=== PATIENT | female | born 1970 | race Caucasian/White ===

== ENCOUNTER 2018-07-27 19:16 | Emergency (ER) | payer BC ==
[~2018-07-27] VITALS: Ht 177.8 cm; Wt 56.0 kg
[~2018-07-27 19:16] MED LIST: AMYL1CAP54 PO; EST1T PO; OXYC-658 PO; PANT40TA4 PO; SUMA100T PO; TIZA2TAB4 PO; ZOLP5TAB2 PO
[2018-07-27 20:20] LABS: BASOPHILS # (AUTO) 0.1 X10'3 (0-0.2); EOSINOPHILS # (AUTO) 0.1 X10'3 (0-0.9); EOSINOPHILS % (AUTO) 2.1 % (0-6); HEMATOCRIT 36.1 % (35.0-45.0); HEMOGLOBIN 12.2 g/dl (12.0-16.0); LYMPHOCYTES # (AUTO) 2.3 X10'3 (1.1-4.8); LYMPHOCYTES % (AUTO) 35.1 % (21-51); MEAN CORPUSCULAR HEMOGLOBIN 29.7 PG (27.0-31.0); MEAN CORPUSCULAR HGB CONC 33.7 % (33.0-36.5); MEAN PLATELET VOLUME 9.7 FL (7.4-10.4); MONOCYTES # (AUTO) 0.3 X10'3 (0-0.9); MONOCYTES % (AUTO) 5.2 % (2-12); NEUTROPHILS # (AUTO) 3.7 X10'3 (1.8-7.7); NEUTROPHILS % (AUTO) 56.6 % (42-75); PLATELET COUNT 250 X10'3 (140-440); RED CELL DISTRIBUTION WIDTH 14.4 % (11.5-14.5); WHITE BLOOD COUNT 6.4 X10'3 (4.5-11.0)
[2018-07-27 20:34] LABS: ALANINE AMINOTRANSFERASE 23 U/L (12-78); ALBUMIN 3.6 G/DL (3.4-5.0); ALBUMIN/GLOBULIN RATIO 1.1 (1.1-1.5); ALKALINE PHOSPHATASE 73 IU/L (46-116); ANION GAP 11 (8-16); ASPARTATE AMINO TRANSFERASE 15 U/L (10-37); BILIRUBIN,TOTAL 0.3 MG/DL (0.1-1.0); BLOOD UREA NITROGEN 19 MG/DL (7-18); BUN/CREATININE RATIO 30.6 (6.6-38.0); CALCIUM 8.9 MG/DL (8.5-10.1); CHLORIDE 106 MMOL/L (99-107); CREATININE 0.62 MG/DL (0.40-0.90); GLUCOSE 91 MG/DL (70-104); LIPASE 147 U/L (73-393); SODIUM 140 MMOL/L (135-145); TOTAL CARBON DIOXIDE 23.5 MMOL/L (24-32); TOTAL PROTEIN 6.8 G/DL (6.4-8.2); eGFR > 90 ML/MIN
[2018-07-27] MEDS ORDERED: heparin sodium, porcine/PF 100unit/ml 5ML syringe IV STA (20:39)
[2018-07-27] MEDS ORDERED: normal saline 1000ml 1,000 ML IV ONE (20:46)
[2018-07-27] MEDS ORDERED: ondansetron/PF 4mg/2ml inj IV ONE (20:50)
[2018-07-27] MEDS ORDERED: normal saline 1000ML IV soln IVB ONE (20:50)
[2018-07-27 21:21] LABS: CLARITY,URINE CLEAR (Clear); COLOR,URINE YELLOW (Yellow); GLUCOSE, URINE NEGATIVE (Neg); KETONES,URINE NEGATIVE (Neg); LEUKOCYTE ESTERASE ,URINE NEGATIVE (Neg); NITRITES, URINE NEGATIVE (Neg); OCCULT BLOOD,URINE NEGATIVE (Neg); PROTEIN,URINE NEGATIVE (Neg); UA COLLECTION TYPE NON-SPECIFIED; UROBILINOGEN,URINE 0.2 E.U/dL (0.2-1.0)
[2018-07-27 21:23] LABS: URINE HCG NEGATIVE (NEG)
[2018-07-27] MEDS: HYDROmorphone 1 mg/ml syringe IV PRN ×3 (21:30→23:28)
[2018-07-28] MEDS ORDERED: normal saline 1000ML IV soln IVB ONE (00:30)
[2018-07-28] MEDS ORDERED: potassium Cl 20mEq in D5-NS 1,000 ML IV SCH (00:35)
[2018-07-28] MEDS: ondansetron/PF 4mg/2ml inj IV SCH ×5 (00:51→09:00)
[2018-07-28] MEDS: HYDROmorphone 1 mg/ml syringe IV PRN (00:52)
[2018-07-28] MEDS: HYDROmorphone 1 mg/ml syringe IV SCH ×5 (02:29→09:00)
[2018-07-28 06:14] VITALS: BP 115/76
[2018-07-28] MEDS ORDERED: tPA-cathflo 2 MG/2 ml IV flush IVF ONE (08:20)
[2018-07-28] MEDS ORDERED: OXYC10TA57 PO (09:47)
== END 2018-07-28 10:00 | disposition home or self-care (01) ==
LOC: ER 19:17
DX: I82.611 Acute embolism and thrombosis of superficial veins of right upper extremity (principal); R10.10 Upper abdominal pain, unspecified; R11.2 Nausea with vomiting, unspecified; K86.1 Other chronic pancreatitis; G89.29 Other chronic pain; Z90.49 Acquired absence of other specified parts of digestive tract; Z90.710 Acquired absence of both cervix and uterus; Z98.890 Other specified postprocedural states; Z88.6 Allergy status to analgesic agent; Z88.8 Allergy status to other drugs, medicaments and biological substances; Z91.013 Allergy to seafood
CPT/HCPCS: 36415; 36569; 71045; 74176; 80053; 81003; 81025; 83690; 85025; 93971; 96361; 96374; 96375; 96376; 99285; J1170; J2405; J3480; 96365; 99284; J2997

== ENCOUNTER 2019-03-29 19:41 | Emergency (ER) | payer MEDICAID ==
[~2019-03-29] VITALS: Ht 177.8 cm; Wt 56.8 kg
[~2019-03-29 19:41] MED LIST changes: +HYDR2TAB28 PO; +METR-159 PO; -OXYC-658 PO; +OXYC10TA57 PO; -PANT40TA4 PO; -SUMA100T PO; -TIZA2TAB4 PO
[2019-03-29 20:19] LABS: BASOPHILS % (AUTO) 0.5 % (0-1); EOSINOPHILS # (AUTO) 0.2 X10'3 (0-0.9); EOSINOPHILS % (AUTO) 2.5 % (0-6); HEMATOCRIT 37.7 % (35.0-45.0); LYMPHOCYTES # (AUTO) 2.8 X10'3 (1.1-4.8); LYMPHOCYTES % (AUTO) 45.8 % (21-51); MEAN CORPUSCULAR HEMOGLOBIN 24.5 PG (27.0-31.0); MEAN CORPUSCULAR VOLUME 76.5 FL (78-98); MEAN PLATELET VOLUME 8.9 FL (7.4-10.4); MONOCYTES # (AUTO) 0.3 X10'3 (0-0.9); MONOCYTES % (AUTO) 4.6 % (2-12); NEUTROPHILS # (AUTO) 2.8 X10'3 (1.8-7.7); NEUTROPHILS % (AUTO) 46.6 % (42-75); PLATELET COUNT 240 X10'3 (140-440); RED BLOOD COUNT 4.92 X10'6 (4.20-5.60); RED CELL DISTRIBUTION WIDTH 16.2 % (11.5-14.5); WHITE BLOOD COUNT 6.1 X10'3 (4.5-11.0)
[2019-03-29] MEDS ORDERED: morphine 4 MG/ML inj SYRINge IV ONE ×2 (20:30→22:30)
[2019-03-29] MEDS ORDERED: ondansetron/PF 4mg/2ml inj IV ONE (20:30)
[2019-03-29 20:36] LABS: ALANINE AMINOTRANSFERASE 38 U/L (12-78); ALBUMIN/GLOBULIN RATIO 1.3 (1.1-1.5); ALKALINE PHOSPHATASE 95 IU/L (46-116); ANION GAP 12 (8-16); ASPARTATE AMINO TRANSFERASE 36 U/L (10-37); BILIRUBIN,TOTAL 0.3 MG/DL (0.1-1.0); BLOOD UREA NITROGEN 19 MG/DL (7-18); CALCIUM 9.2 MG/DL (8.5-10.1); CHLORIDE 105 MMOL/L (99-107); CREATININE 0.73 MG/DL (0.40-0.90); GLUCOSE 107 MG/DL (70-104); POTASSIUM 3.6 MMOL/L (3.5-5.1); SODIUM 143 MMOL/L (135-145); TOTAL PROTEIN 7.2 G/DL (6.4-8.2); eGFR 85 ML/MIN
--- NOTE | 2019-03-29 21:36 | NUR ---
PT UNABLE TO VOID FOR UA.
[2019-03-29] MEDS ORDERED: BISA-155 PO (22:33)
[2019-03-29] MEDS ORDERED: DICY10CA88 PO (22:33)
[2019-03-29] MEDS ORDERED: GOLYS PO (22:33)
[2019-03-29 22:34] VITALS: BP 106/49
== END 2019-03-29 22:48 | disposition home or self-care (01) ==
LOC: ER 19:41
DX: K59.00 Constipation, unspecified (principal); R10.12 Left upper quadrant pain; R10.11 Right upper quadrant pain; R06.02 Shortness of breath; G89.29 Other chronic pain; F41.9 Anxiety disorder, unspecified; F32.9 Major depressive disorder, single episode, unspecified; F12.90 Cannabis use, unspecified, uncomplicated; Z90.49 Acquired absence of other specified parts of digestive tract; Z90.710 Acquired absence of both cervix and uterus; Z98.890 Other specified postprocedural states; Z88.8 Allergy status to other drugs, medicaments and biological substances; Z91.013 Allergy to seafood; Z79.899 Other long term (current) drug therapy
CPT/HCPCS: 36415; 74176; 80053; 85025; 85610; 96374; 96375; 96376; 99284; J2270; J2405

== ENCOUNTER 2019-04-06 20:24 | Inpatient (IN) | payer MEDICAID ==
[~2019-04-06] VITALS: Ht 177.8 cm; Wt 56.9 kg
[~2019-04-06 20:24] MED LIST changes: +BISA-155 PO; +DICY10CA88 PO; +GOLYS PO
--- NOTE | 2019-04-06 20:30 | NUR ---
PT REQUESTED WE USE PICC LINE FOR MEDICATION . dR GRIGGS OK'D PICC LINE USE.
[2019-04-06] MEDS ORDERED: morphine 4 MG/ML inj SYRINge IV ONE ×2 (20:40→23:15)
[2019-04-06] MEDS ORDERED: ondansetron/PF 4mg/2ml inj IV ONE (20:40)
--- NOTE | 2019-04-06 21:00 | NUR ---
PT TO CT OF ABDOMEN
[2019-04-06 21:18] LABS: BASOPHILS # (AUTO) 0.1 X10'3 (0-0.2); BASOPHILS % (AUTO) 0.9 % (0-1); EOSINOPHILS # (AUTO) 0.1 X10'3 (0-0.9); EOSINOPHILS % (AUTO) 2.2 % (0-6); HEMATOCRIT 37.9 % (35.0-45.0); HEMOGLOBIN 12.5 g/dl (12.0-16.0); LYMPHOCYTES # (AUTO) 2.5 X10'3 (1.1-4.8); LYMPHOCYTES % (AUTO) 43.9 % (21-51); MEAN CORPUSCULAR HGB CONC 32.9 g/dL (33.0-36.5); MEAN CORPUSCULAR VOLUME 75.9 FL (78-98); MEAN PLATELET VOLUME 8.4 FL (7.4-10.4); MONOCYTES # (AUTO) 0.3 X10'3 (0-0.9); MONOCYTES % (AUTO) 5.3 % (2-12); NEUTROPHILS # (AUTO) 2.7 X10'3 (1.8-7.7); NEUTROPHILS % (AUTO) 47.7 % (42-75); PLATELET COUNT 247 X10'3 (140-440); RED BLOOD COUNT 4.99 X10'6 (4.20-5.60); WHITE BLOOD COUNT 5.6 X10'3 (4.5-11.0)
[2019-04-06] MEDS ORDERED: fentaNYL/PF 50MCG/1 ML 2ML syringe IV ONE ×2 (21:35→22:25)
--- NOTE | 2019-04-06 21:35 | NUR ---
MEDICATED WITH ZOFRAN AND 8 MG OF MORPHINE FOR PAIN 8/10 TO MID EPIGASTRIC TO UPPPER LEFT QUAD PAIN. NOTIFIED DR GRIGGS OF RELEIF NOT MET
[2019-04-06 21:36] LABS: ALANINE AMINOTRANSFERASE 38 U/L (12-78); ALBUMIN/GLOBULIN RATIO 1.1 (1.1-1.5); ALKALINE PHOSPHATASE 100 IU/L (46-116); ANION GAP 11 (8-16); ASPARTATE AMINO TRANSFERASE 19 U/L (10-37); BILIRUBIN,TOTAL 0.3 MG/DL (0.1-1.0); BLOOD UREA NITROGEN 12 MG/DL (7-18); BUN/CREATININE RATIO 18.5 (6.6-38.0); CALCIUM 9.3 MG/DL (8.5-10.1); CHLORIDE 105 MMOL/L (99-107); CREATININE 0.65 MG/DL (0.40-0.90); GLUCOSE 93 MG/DL (70-104); LIPASE 110 U/L (73-393); POTASSIUM 3.8 MMOL/L (3.5-5.1); SODIUM 140 MMOL/L (135-145); TOTAL CARBON DIOXIDE 24.5 MMOL/L (24-32); TOTAL PROTEIN 7.5 G/DL (6.4-8.2); eGFR > 90 ML/MIN
[2019-04-06] MEDS ORDERED: ketorolac trometh. 30mg/ml inj. IV ONE (21:50)
[2019-04-06] MEDS ORDERED: ketorolac tromethamine 15mg/ml inj. IV ONE (21:50)
[2019-04-06 22:09] LABS: UA COLLECTION TYPE CLN CATCH MIDSTREAM
[2019-04-06 22:10] LABS: CLARITY,URINE CLEAR (Clear); COLOR,URINE YELLOW (Yellow); GLUCOSE, URINE NEGATIVE (Neg); KETONES,URINE NEGATIVE (Neg); LEUKOCYTE ESTERASE ,URINE NEGATIVE (Neg); NITRITES, URINE NEGATIVE (Neg); OCCULT BLOOD,URINE NEGATIVE (Neg); PROTEIN,URINE NEGATIVE (Neg); UROBILINOGEN,URINE 0.2 E.U/dL (0.2-1.0)
[2019-04-06 22:11] LABS: URINE HCG NEGATIVE (NEG)
--- NOTE | 2019-04-06 22:56 | NUR ---
PT SITTING IN BED WITH KNEES TO CHEST USING PHONE . MEDICATED WITH FENTANYL ORDER. PT VERBALIZE THAT SHE FEELS THAT HER PAIN IS NOW GETTING IN CONTROL BUT STILL CONCERNED ABOUT WHAT IS CAUSING HER DISCOMFORT. REVIEWED ALL LABS WITH PATIENT AND DISCUSED POC .
[2019-04-07] MEDS ORDERED: HYDROmorphone 1 mg/ml syringe IV ONE (00:40)
[2019-04-07] MEDS ORDERED: magnesium hydroxide 30ml (MOM) UD suspension PO PRN (00:55)
[2019-04-07] MEDS ORDERED: magnesium 4gm in 100ml NS 100 ML IV PRN (00:55)
[2019-04-07] MEDS ORDERED: magnesium 2GM in 50ml NS 50 ML IV PRN (00:55)
[2019-04-07] MEDS ORDERED: potassium Cl 20 mEq SR tablet PO PRN ×2 (00:55)
[2019-04-07] MEDS ORDERED: morphine 2 MG/ML inj. syringe IV PRN ×2 (00:55)
[2019-04-07] MEDS ORDERED: potassium CL 10mEq/100ml bag 100 ML IV PRN ×2 (00:55)
[2019-04-07] MEDS ORDERED: magnesium Cl slow-release 64mg tablet PO PRN (00:55)
[2019-04-07] MEDS ORDERED: mag hydrox/Alum hydrox/simeth 30ml oral suspension PO PRN (00:55)
--- NOTE | 2019-04-07 01:14 | NUR ---
chest x ray to confirm picc placement
[2019-04-07] MEDS: normal saline 1000ml 1,000 ML IV SCH ×4 (01:18→21:35)
[2019-04-07] MEDS ORDERED: TIZA4TAB11 PO (01:25)
[2019-04-07] MEDS ORDERED: POLY119P2 PO (01:27)
--- NOTE | 2019-04-07 02:02 | NUR ---
Received report from Meghann CARR, will assess patient when she arrives.
[2019-04-07 02:10] VITALS: BP 106/62
--- NOTE | 2019-04-07 02:10 | NUR ---
Ok to use PICC line per Dr. Marroquin.
--- NOTE | 2019-04-07 02:15 | NUR ---
Discussed with Dr. Do the amount of pain medications provided down in ED, received order for Dilaudid CADD standard settings. Dr. Do also recommended NG but patient refused statin she would like to wait some time before doing that. Will continue to monitor.
[2019-04-07] MEDS ORDERED: naloxone 0.4 mg/ml inj IV PRN (02:30)
[2019-04-07] MEDS: HYDROmorphone/NS 1 mg/ml CADD 50 ML IV SCH ×15 (02:47→23:43)
[2019-04-07] MEDS ORDERED: SUMA100T16 PO (06:40)
[2019-04-07] MEDS ORDERED: ESTR1TAB28 PO (06:40)
[2019-04-07 07:00] VITALS: BP 110/46
--- NOTE | 2019-04-07 07:01 | NUR ---
Patient in room [facility] 360. I have received report from Elaine CARR and had the opportunity to ask questions and assume patient care.
--- NOTE | 2019-04-07 07:05 | NUR ---
Janey Sheriff reviewed patients Xray and stated PICC line in place and ok to use.
[2019-04-07] MEDS: K and/or MAG REPLACEMENT MC SCH (08:00)
[2019-04-07] MEDS: docusate sod 100mg capsule PO SCH ×2 (08:00→19:09)
[2019-04-07] MEDS ORDERED: zolpidem 5mg tablet PO PRN (08:30)
[2019-04-07] MEDS ORDERED: SUMAtriptan 25 MG tablet PO PRN (08:30)
[2019-04-07] MEDS: enoxaparin 40mg/0.4ml syringe SQ SCH (08:58)
[2019-04-07 11:00] VITALS: BP 100/45
[2019-04-07] MEDS ORDERED: tizanidine 4mg tablet PO SCH (13:00)
[2019-04-07] MEDS: LIPASE/PROTEASE/AMYLASE 4,200 unit CAPSULE.DR PO SCH ×2 (13:00→19:28)
[2019-04-07] MEDS: ondansetron/PF 4mg/2ml inj IV PRN ×2 (15:03→21:34)
--- NOTE | 2019-04-07 15:56 | NUR ---
Read Dr Melton the KUB impression. Per Dr Melton contact Dr Downey and tell him patient needs a GI consult.
--- NOTE | 2019-04-07 18:30 | NUR ---
Patient in room [facility] 360. I have received report from Rocio CARR and had the opportunity to ask questions and assume patient care. Patient resting in bed, DIRECTOR OF QUALITY IMPROVEMENT running will continue to monitor..
--- NOTE | 2019-04-07 18:41 | NUR ---
Problems reprioritized. Patient report given, questions answered & plan of care reviewed with Elaine CARR.
[2019-04-07 19:00] VITALS: BP 112/46
[2019-04-07] MEDS: pantoprazole 40 MG vial IV SCH (19:18)
[2019-04-07] MEDS: diatr meglu/diatrizoate 30ml oral sol.-(3 dose) bottle PO SCH ×2 (19:22→23:06)
[2019-04-07] MEDS: estradiol 1mg tablet PO SCH (21:34)
--- NOTE | 2019-04-07 22:47 | NUR ---
Per patient her physician that manages her pancreas states that she can dose her capsules based on the amount she eats. Received order from Dr. Do that states that the patient may dose as she requested above. Will continue to monitor.
[2019-04-08] VITALS (14 sets, daily range): BP systolic 96–128; BP diastolic 38–87
[2019-04-08] MEDS: HYDROmorphone/NS 1 mg/ml CADD 50 ML IV SCH ×12 (01:00→23:00)
[2019-04-08 04:54] LABS: BASOPHILS % (AUTO) 0.3 % (0-1); EOSINOPHILS % (AUTO) 0.1 % (0-6); HEMATOCRIT 27.1 % (35.0-45.0); HEMOGLOBIN 8.8 g/dl (12.0-16.0); LYMPHOCYTES # (AUTO) 0.4 X10'3 (1.1-4.8); LYMPHOCYTES % (AUTO) 5.1 % (21-51); MEAN CORPUSCULAR HEMOGLOBIN 25.1 PG (27.0-31.0); MEAN CORPUSCULAR HGB CONC 32.6 g/dL (33.0-36.5); MEAN PLATELET VOLUME 8.9 FL (7.4-10.4); MONOCYTES # (AUTO) 0.3 X10'3 (0-0.9); MONOCYTES % (AUTO) 4.2 % (2-12); NEUTROPHILS # (AUTO) 6.7 X10'3 (1.8-7.7); NEUTROPHILS % (AUTO) 90.3 % (42-75); PLATELET COUNT 147 X10'3 (140-440); RED BLOOD COUNT 3.51 X10'6 (4.20-5.60); RED CELL DISTRIBUTION WIDTH 16.7 % (11.5-14.5); WHITE BLOOD COUNT 7.4 X10'3 (4.5-11.0)
[2019-04-08 05:07] LABS: ANION GAP 13 (8-16); BLOOD UREA NITROGEN 9 MG/DL (7-18); BUN/CREATININE RATIO 17.3 (6.6-38.0); CALCIUM 7.8 MG/DL (8.5-10.1); CHLORIDE 112 MMOL/L (99-107); CREATININE 0.52 MG/DL (0.40-0.90); GLUCOSE 79 MG/DL (70-104); MAGNESIUM 1.5 MG/DL (1.5-2.4); POTASSIUM 3.5 MMOL/L (3.5-5.1); SODIUM 144 MMOL/L (135-145); TOTAL CARBON DIOXIDE 19.1 MMOL/L (24-32); eGFR > 90 ML/MIN
--- NOTE | 2019-04-08 06:32 | NUR ---
Problems reprioritized. Patient report given, questions answered & plan of care reviewed with Rocio CARR.
--- NOTE | 2019-04-08 06:43 | NUR ---
Patient in room [facility] 340. I have received report from Elaine CARR and had the opportunity to ask questions and assume patient care.
[2019-04-08] MEDS: enoxaparin 40mg/0.4ml syringe SQ SCH (08:00)
[2019-04-08] MEDS ORDERED: ESOMEPRAZOLE 40 MG VIAL IV SCH (08:00)
[2019-04-08] MEDS: LIPASE/PROTEASE/AMYLASE 4,200 unit CAPSULE.DR PO SCH ×3 (08:00→21:00)
[2019-04-08] MEDS: K and/or MAG REPLACEMENT MC SCH (08:00)
[2019-04-08] MEDS: normal saline 1000ml 1,000 ML IV SCH ×2 (08:14→18:00)
[2019-04-08] MEDS: pantoprazole 40 MG vial IV SCH ×2 (08:17→19:15)
[2019-04-08] MEDS: docusate sod 100mg capsule PO SCH (08:22)
--- NOTE | 2019-04-08 09:24 | NUR ---
Pt with low BMI of 18.0 using current documented wt of 56.8 kg which is patient stated. Patient with stable wt hx of 56.15 kg taken 12/28/18 with chair scale and 56.8 kg taken 07/25/19 using standing scale. Pt denied wt loss or decrease in appetite during malnutrition risk screening with RN. No decrease in muscle strength or edema. No malnutrition at this time. Will continue to follow. Addendum: 04/08/19 at [address] Amended: Links added.
[2019-04-08] MEDS ORDERED: LIDOcaine Viscous 15ml cup ONE (12:35)
[2019-04-08] MEDS ORDERED: MIDAZolam 5mg/5ml vial ONE (12:35)
[2019-04-08] MEDS ORDERED: fentaNYL/PF 50MCG/1 ML 2ML syringe ONE (12:35)
--- NOTE | 2019-04-08 15:08 | NUR ---
Dr Downey aware of report from GI lab, Received orders to continue care as we have been and to notify Case Management about patient needing to be referred back to [facility]. Kathy notified with Case Management. Dr Downey aware patient received 4 of versed and 100 of fentynl and was falling asleep during our conversation in the room. Per Dr Downey hold off on increasing patients Dilaudid Cadd to 0.3 Continue until patient is more awake. Leave patients Dilauidid cadd at same settingings until tonight when more awake. Settings as of now 0.3 mg demand Q10 min and 0.2 continuous.
--- NOTE | 2019-04-08 15:43 | NUR ---
TPN consult: Per RN pt already with a PICC and given the okay to use. Recommendations below to meet 100% of patient's estimated nutrient needs have been d/w pharmacy. Pt admit with c/o abdominal pain s/p KUB with no evidence of SBO per MD notes. Pt to get EGD to r/o gastritis per MD notes. 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 Pt currently on clear liquid diet however to be NPO at midnight for EGD. Pt with active Pancreaze in med list. LBM 04/06. Will continue to follow. Recommendations: 1) Advance PO diet to regular as medically indicated 2) Continuous 2:1 Clinimix E at 80 mL/hr to provide: 1920 mL total volume/day, 96 g protein, and 288 g dextrose. Dextrose load 3.57 mg/kg/min 3) Separate 216 mL 20% intralipids to run at 18 mL/hr for 12 hours to provide 43.2 g lipids 4) In total, TPN to provide 1411 non-protein kcal and 1795 total kcal 5) Serum TG q / 6) Daily weights Addendum: 04/08/19 at [address] Amended: Links added.
[2019-04-08] MEDS ORDERED: TRACE ELEMENT IV SCH (16:20)
[2019-04-08] MEDS ORDERED: CAL IV SCH (16:20)
[2019-04-08] MEDS ORDERED: [UNRECOGNIZED DRUG - OTHER] IV SCH (16:20)
[2019-04-08] MEDS ORDERED: Trace element-5 inj. 1 ML in AA 5%/cal/electrolyte-TPN/D15W 2,000 ML IV SCH (17:00)
--- NOTE | 2019-04-08 18:30 | NUR ---
Patient in room [facility] 340. I have received report from Rocio CARR and had the opportunity to ask questions and assume patient care. Patient resting in bed, denies needs at this time. Will continue to monitor.
[2019-04-08 18:44] LABS: PREALBUMIN 14.6 MG/DL (19-36)
--- NOTE | 2019-04-08 19:18 | NUR ---
Problems reprioritized. Patient report given, questions answered & plan of care reviewed with Elaine CARR.
[2019-04-08] MEDS: sucralfate 1gm/10ml UD suspension PO SCH (22:25)
[2019-04-08] MEDS: estradiol 1mg tablet PO SCH (22:26)
[2019-04-09] VITALS: BP 124/58
[2019-04-09] MEDS: HYDROmorphone/NS 1 mg/ml CADD 50 ML IV SCH ×12 (01:00→23:00)
[2019-04-09] MEDS: normal saline 1000ml 1,000 ML IV SCH ×3 (03:14→23:55)
[2019-04-09] MEDS: ondansetron/PF 4mg/2ml inj IV PRN ×3 (05:36→21:34)
[2019-04-09 05:52] LABS: BASOPHILS % (AUTO) 0.5 % (0-1); EOSINOPHILS % (AUTO) 1.4 % (0-6); HEMATOCRIT 27.4 % (35.0-45.0); HEMOGLOBIN 9.1 g/dl (12.0-16.0); LYMPHOCYTES # (AUTO) 0.8 X10'3 (1.1-4.8); LYMPHOCYTES % (AUTO) 23.3 % (21-51); MEAN CORPUSCULAR HEMOGLOBIN 25.1 PG (27.0-31.0); MEAN CORPUSCULAR HGB CONC 33.2 g/dL (33.0-36.5); MEAN CORPUSCULAR VOLUME 75.7 FL (78-98); MEAN PLATELET VOLUME 8.6 FL (7.4-10.4); MONOCYTES # (AUTO) 0.3 X10'3 (0-0.9); MONOCYTES % (AUTO) 8.1 % (2-12); NEUTROPHILS # (AUTO) 2.2 X10'3 (1.8-7.7); NEUTROPHILS % (AUTO) 66.7 % (42-75); PLATELET COUNT 150 X10'3 (140-440); RED BLOOD COUNT 3.63 X10'6 (4.20-5.60); RED CELL DISTRIBUTION WIDTH 16.7 % (11.5-14.5); WHITE BLOOD COUNT 3.3 X10'3 (4.5-11.0)
[2019-04-09 05:55] LABS: ALANINE AMINOTRANSFERASE 58 U/L (12-78); ALBUMIN/GLOBULIN RATIO 1.2 (1.1-1.5); ALKALINE PHOSPHATASE 69 IU/L (46-116); ANION GAP 9 (8-16); ASPARTATE AMINO TRANSFERASE 37 U/L (10-37); BILIRUBIN,TOTAL 0.4 MG/DL (0.1-1.0); BLOOD UREA NITROGEN 6 MG/DL (7-18); BUN/CREATININE RATIO 11.5 (6.6-38.0); CALCIUM 8.1 MG/DL (8.5-10.1); CHLORIDE 107 MMOL/L (99-107); CREATININE 0.52 MG/DL (0.40-0.90); GLUCOSE 100 MG/DL (70-104); MAGNESIUM 1.5 MG/DL (1.5-2.4); POTASSIUM 3.5 MMOL/L (3.5-5.1); SODIUM 139 MMOL/L (135-145); TOTAL CARBON DIOXIDE 23.1 MMOL/L (24-32); TOTAL PROTEIN 5.5 G/DL (6.4-8.2); eGFR > 90 ML/MIN
[2019-04-09] MEDS: CADD PCA waste documentation MC PRN (05:55)
[2019-04-09] MEDS: K and/or MAG REPLACEMENT MC SCH (06:55)
--- NOTE | 2019-04-09 06:56 | NUR ---
Problems reprioritized. Patient report given, questions answered & plan of care reviewed with Latonia CARR.
[2019-04-09 07:16] VITALS: BP 94/50
[2019-04-09] MEDS: sucralfate 1gm/10ml UD suspension PO SCH ×4 (07:45→21:00)
[2019-04-09] MEDS: pantoprazole 40 MG vial IV SCH ×2 (07:58→21:40)
[2019-04-09] MEDS: enoxaparin 40mg/0.4ml syringe SQ SCH (08:04)
[2019-04-09] MEDS: LIPASE/PROTEASE/AMYLASE 4,200 unit CAPSULE.DR PO SCH ×3 (08:42→21:00)
[2019-04-09] MEDS: MVI, adult No.4 with vit. K 10 ML in normal saline 500ml IV soln 500 ML IV SCH ×2 (10:04)
[2019-04-09 11:00] VITALS: BP 107/57
[2019-04-09] MEDS: Trace element-5 inj. 1 ML in AA 5%/cal/electrolyte-TPN/D15W 2,000 ML IV SCH (12:45)
--- NOTE | 2019-04-09 12:59 | NUR ---
pt took 3 capsules of 1300 pancreaze dose
[2019-04-09] MEDS: proCHLORperazine 10 MG/2 ml inj IV PRN (15:42)
--- NOTE | 2019-04-09 18:30 | NUR ---
Patient in room [facility] 340. I have received report from Latonia CARR and had the opportunity to ask questions and assume patient care.
--- NOTE | 2019-04-09 18:47 | NUR ---
Problems reprioritized. Patient report given, questions answered & plan of care reviewed with Amanda CARR.
--- NOTE | 2019-04-09 18:49 | NUR ---
Problems reprioritized. Patient report given, questions answered & plan of care reviewed with Amanda CARR.
[2019-04-09 19:15] VITALS: BP 109/58
[2019-04-09] MEDS: estradiol 1mg tablet PO SCH (22:06)
[2019-04-10] VITALS (13 sets, daily range): BP systolic 103–132; BP diastolic 52–74
[2019-04-10] MEDS: HYDROmorphone/NS 1 mg/ml CADD 50 ML IV SCH ×9 (01:00→23:00)
--- NOTE | 2019-04-10 02:39 | NUR ---
1600 sulcrafate not given as Pt. likes to take right before a meal. However, patient did not actually eat her dinner but wanted to wait incase she wanted to eat something later, which she did not.
--- NOTE | 2019-04-10 02:41 | NUR ---
2100 pancreaze not given as patient likes to take when she is eating food. Patient never did eat anything last night.
--- NOTE | 2019-04-10 04:24 | NUR ---
10mins ago, PCT found me and asked what sort of line does 40B have as it was out and fluids leaking. Went into look and sure enough 19 3/4 cm of purple picc tubing out. Patient stated "i don't know how it happened I just went to the bathroom and felt something wet. Patient then went on to say that maybe it had been out from earlier when the lipids were being administered. I assured her that I had just been in recently and checked on all her lines and that everything had been ok up until then. Asked charge nurse to come in and assess as base of the picc line still in pt's arm. Unable to take out, so covered with a tegaderm and purple tubing put in to a bag. A nurse is now trying to start a New PIV so that patient can at least continue on fluids and have pain management.
--- NOTE | 2019-04-10 06:00 | NUR ---
Spoke with PA and she will address situation with on-coming healthcare technician. Day nurse aware of situation and a triple lumen catheter kit in room ready for insertion. Last BS at [phone]. Patient is on a clear liquid diet,but has trouble keeping things down d/t dx. Patients knows her s/s of low blood sugars and has been instructed to call right away if this happens.
--- NOTE | 2019-04-10 06:13 | NUR ---
After several attempts failed from very experience nurses, obtained order for patient to have a central line placed.
--- NOTE | 2019-04-10 06:30 | NUR ---
Problems reprioritized. Patient report given, questions answered & plan of care reviewed with Felicita CARR.
[2019-04-10] MEDS: sucralfate 1gm/10ml UD suspension PO SCH ×4 (07:00→20:31)
--- NOTE | 2019-04-10 07:10 | NUR ---
Patient in room [facility] 340. I have received report from BRUNO Patel and had the opportunity to ask questions and assume patient care.
[2019-04-10] MEDS ORDERED: Dextrose 10%-water IV solution 1,000 ML IV PRN (07:38)
[2019-04-10] MEDS ORDERED: HYDROmorphone 2mg tablet PO PRN (07:40)
[2019-04-10] MEDS: pantoprazole 40 MG vial IV SCH ×2 (08:00→20:31)
[2019-04-10] MEDS: LIPASE/PROTEASE/AMYLASE 4,200 unit CAPSULE.DR PO SCH ×4 (08:00→20:39)
[2019-04-10] MEDS: K and/or MAG REPLACEMENT MC SCH (08:00)
[2019-04-10] MEDS: enoxaparin 40mg/0.4ml syringe SQ SCH (08:00)
--- NOTE | 2019-04-10 10:00 | NUR ---
Arrived from surg floor placed on monitor and vs q15 min.
[2019-04-10] MEDS ORDERED: LORazepam 1 MG tablet PO ONE (11:20)
--- NOTE | 2019-04-10 11:20 | NUR ---
Pt having central line placed during second set of vital signs. Will obtain when pt returns to floor.
--- NOTE | 2019-04-10 11:25 | NUR ---
gave ativan 2mg po prior to procedure.
--- NOTE | 2019-04-10 13:45 | NUR ---
Dr Chahal here to place central line, done without complication, cxr done.
--- NOTE | 2019-04-10 14:30 | NUR ---
attempted to remove PICC line stabelizer in left arm, unable to remove, dressing replaced and charge account clerk on surgical floor notified when patient was taken back to her room.
--- NOTE | 2019-04-10 14:40 | NUR ---
Returned to [facility] floor.
[2019-04-10] MEDS: normal saline 1000ml 1,000 ML IV SCH (15:11)
[2019-04-10] MEDS: Trace element-5 inj. 1 ML in AA 5%/cal/electrolyte-TPN/D15W 2,000 ML IV SCH (15:11)
[2019-04-10] MEDS: MVI, adult No.4 with vit. K 10 ML in normal saline 500ml IV soln 500 ML IV SCH ×2 (15:11)
[2019-04-10 15:54] LABS: BASOPHILS % (AUTO) 0.8 % (0-1); EOSINOPHILS # (AUTO) 0.1 X10'3 (0-0.9); HEMATOCRIT 28.1 % (35.0-45.0); HEMOGLOBIN 9.4 g/dl (12.0-16.0); LYMPHOCYTES # (AUTO) 1.2 X10'3 (1.1-4.8); LYMPHOCYTES % (AUTO) 39.8 % (21-51); MEAN CORPUSCULAR HEMOGLOBIN 25.2 PG (27.0-31.0); MEAN CORPUSCULAR HGB CONC 33.3 g/dL (33.0-36.5); MEAN CORPUSCULAR VOLUME 75.8 FL (78-98); MEAN PLATELET VOLUME 9.5 FL (7.4-10.4); MONOCYTES # (AUTO) 0.4 X10'3 (0-0.9); MONOCYTES % (AUTO) 12.9 % (2-12); NEUTROPHILS # (AUTO) 1.3 X10'3 (1.8-7.7); NEUTROPHILS % (AUTO) 44.5 % (42-75); PLATELET COUNT 156 X10'3 (140-440); RED BLOOD COUNT 3.71 X10'6 (4.20-5.60); RED CELL DISTRIBUTION WIDTH 17.2 % (11.5-14.5)
[2019-04-10 16:08] LABS: ALANINE AMINOTRANSFERASE 42 U/L (12-78); ALBUMIN 2.9 G/DL (3.4-5.0); ALBUMIN/GLOBULIN RATIO 1.2 (1.1-1.5); ALKALINE PHOSPHATASE 70 IU/L (46-116); ANION GAP 8 (8-16); ANISOCYTOSIS 1+; ASPARTATE AMINO TRANSFERASE 19 U/L (10-37); BILIRUBIN,TOTAL 0.4 MG/DL (0.1-1.0); BLOOD UREA NITROGEN 5 MG/DL (7-18); BUN/CREATININE RATIO 11.4 (6.6-38.0); CALCIUM 8.1 MG/DL (8.5-10.1); CHLORIDE 107 MMOL/L (99-107); CREATININE 0.44 MG/DL (0.40-0.90); GLUCOSE 93 MG/DL (70-104); MAGNESIUM 1.6 MG/DL (1.5-2.4); MICROCYTOSIS 1+; PLATELET ESTIMATE NORMAL; POTASSIUM 3.1 MMOL/L (3.5-5.1); SODIUM 145 MMOL/L (135-145); TOTAL CARBON DIOXIDE 29.6 MMOL/L (24-32); TOTAL CELLS COUNTED 100; TOTAL PROTEIN 5.4 G/DL (6.4-8.2); eGFR > 90 ML/MIN
[2019-04-10 16:09] LABS: POIKILOCYTOSIS FEW
[2019-04-10] MEDS ORDERED: potassium CL 10mEq/100ml bag 100 ML IV PRN (16:45)
[2019-04-10] MEDS ORDERED: magnesium 4gm in 100ml NS 100 ML IV PRN (16:55)
[2019-04-10] MEDS ORDERED: potassium Cl 20 mEq SR tablet PO PRN ×2 (16:55)
[2019-04-10] MEDS ORDERED: magnesium Cl slow-release 64mg tablet PO PRN (16:55)
[2019-04-10] MEDS: potassium CL 10mEq/100ml bag 100 ML IV PRN ×4 (17:08→22:05)
--- NOTE | 2019-04-10 18:12 | NUR ---
Problems reprioritized. Patient report given, questions answered & plan of care reviewed with BRUNO Shaw.
[2019-04-10] MEDS: estradiol 1mg tablet PO SCH (20:31)
[2019-04-11] VITALS: BP 127/77
[2019-04-11] MEDS: HYDROmorphone/NS 1 mg/ml CADD 50 ML IV SCH ×11 (00:49→23:00)
[2019-04-11] MEDS: zolpidem 5mg tablet PO PRN (00:51)
[2019-04-11] MEDS: LIPASE/PROTEASE/AMYLASE 4,200 unit CAPSULE.DR PO SCH ×3 (02:49→17:52)
[2019-04-11] MEDS: normal saline 1000ml 1,000 ML IV SCH ×2 (04:50→15:26)
[2019-04-11 06:05] LABS: BASOPHILS % (AUTO) 0.6 % (0-1); EOSINOPHILS # (AUTO) 0.2 X10'3 (0-0.9); EOSINOPHILS % (AUTO) 3.5 % (0-6); HEMATOCRIT 28.2 % (35.0-45.0); HEMOGLOBIN 9.4 g/dl (12.0-16.0); LYMPHOCYTES # (AUTO) 1.6 X10'3 (1.1-4.8); LYMPHOCYTES % (AUTO) 36.1 % (21-51); MEAN CORPUSCULAR HEMOGLOBIN 25.3 PG (27.0-31.0); MEAN CORPUSCULAR HGB CONC 33.2 g/dL (33.0-36.5); MEAN CORPUSCULAR VOLUME 76.2 FL (78-98); MEAN PLATELET VOLUME 9.6 FL (7.4-10.4); MONOCYTES # (AUTO) 0.5 X10'3 (0-0.9); MONOCYTES % (AUTO) 12.3 % (2-12); NEUTROPHILS % (AUTO) 47.5 % (42-75); PLATELET COUNT 155 X10'3 (140-440); WHITE BLOOD COUNT 4.3 X10'3 (4.5-11.0)
--- NOTE | 2019-04-11 06:22 | NUR ---
Problems reprioritized. Patient report given, questions answered & plan of care reviewed with Latonia CARR. Addendum: 04/11/19 at 0622 by Valeria Block RN Amended: Links added.
[2019-04-11 06:32] LABS: ALANINE AMINOTRANSFERASE 41 U/L (12-78); ALBUMIN/GLOBULIN RATIO 1.1 (1.1-1.5); ALKALINE PHOSPHATASE 64 IU/L (46-116); ANION GAP 6 (8-16); ASPARTATE AMINO TRANSFERASE 20 U/L (10-37); BILIRUBIN,TOTAL 0.4 MG/DL (0.1-1.0); BLOOD UREA NITROGEN 8 MG/DL (7-18); BUN/CREATININE RATIO 18.2 (6.6-38.0); CALCIUM 8.3 MG/DL (8.5-10.1); CHLORIDE 108 MMOL/L (99-107); CREATININE 0.44 MG/DL (0.40-0.90); GLUCOSE 94 MG/DL (70-104); MAGNESIUM 1.7 MG/DL (1.5-2.4); PHOSPHORUS 3.7 MG/DL (2.3-4.5); POTASSIUM 3.5 MMOL/L (3.5-5.1); SODIUM 144 MMOL/L (135-145); TOTAL CARBON DIOXIDE 29.6 MMOL/L (24-32); TOTAL PROTEIN 5.7 G/DL (6.4-8.2); eGFR > 90 ML/MIN
[2019-04-11] MEDS: pantoprazole 40 MG vial IV SCH ×2 (07:38→19:46)
[2019-04-11] MEDS: sucralfate 1gm/10ml UD suspension PO SCH ×4 (07:38→20:02)
[2019-04-11] MEDS: duloxetine 20mg capsule.DR PO SCH (07:39)
[2019-04-11] MEDS: K and/or MAG REPLACEMENT MC SCH (07:39)
[2019-04-11] MEDS: enoxaparin 40mg/0.4ml syringe SQ SCH (07:45)
--- NOTE | 2019-04-11 07:48 | NUR ---
gave 2 pancrease tablets this AM, unable to document due to Mai RN's documentation on my dose.
[2019-04-11 08:00] VITALS: BP 105/59
[2019-04-11] MEDS: CADD PCA waste documentation MC PRN (08:30)
[2019-04-11] MEDS: MVI, adult No.4 with vit. K 10 ML in normal saline 500ml IV soln 500 ML IV SCH ×2 (10:21)
[2019-04-11] MEDS: ondansetron/PF 4mg/2ml inj IV PRN (10:34)
[2019-04-11 12:00] VITALS: BP 126/71
--- NOTE | 2019-04-11 13:00 | NUR ---
Dr Vanegas was in room talked to patient, patient has not been tearful all day but now appears tearful when talking to Dr Vanegas. She has not outwardly showed many signs of pain but when talks about changing her to PO meds, she says she is still too painful and not ready. Continous rate of Cadd dropped to 0.[address] will reevaluated DC'in the CADD tomorrow, or if pain is still a problem she will possibly need to be transferred to [facility]. As soon as Dr Vanegas left floor, she is no longer tearful and busy with her phone.
--- NOTE | 2019-04-11 13:26 | NUR ---
Per Germania RN PICC nurse, she will come friday in AM to take out PICC stabilzation devise that is still in arm, The line itself is out so from what Germania says there is not a risk for infection with just having the securAcath stabilization device left in. It sounds like the metal prongs that hold in devise are in the skin not a vessel. There is a Tegaderm over device for precaution. Patient keeps poking/touching at the area and worried it is red and warm but it does not appear red in any lighting to me and I have instructed her to stop touching/poking at the area. Will continue to monitor arm but as of right now Germania CARR says it is fine to leave in, it should not be a problem and can wait until Friday. Pt aware and updated on plan.
[2019-04-11] MEDS: proCHLORperazine 10 MG/2 ml inj IV PRN (13:52)
[2019-04-11] MEDS ORDERED: HYDROmorphone/NS 1 mg/ml CADD 50 ML IV SCH (15:00)
--- NOTE | 2019-04-11 15:01 | NUR ---
reassessment: Pt TPN at goal and tolerating. RD d/w RN regarding d/c NS per MD approval since receiving electrolytes in TPN. Pt 0-25% avg PO clear and wants to try bariatric soft diet per RN but continuous to have abdominal pain. 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 VILMA reviewed this along w/ Whipple diet guidelines on prior admit in December. Pt receiving PO pancreaze. [facility] 04/09. Will monitor for diet advancement and ONS needs. Recommendations: 1) Advance PO diet to regular as medically indicated 2) Continuous 2:1 Clinimix E / at 80 mL/hr to provide: 1920 mL total volume/day, 96 g protein, and 288 g dextrose. Dextrose load 3.57 mg/kg/min 3) Separate 216 mL 20% intralipids to run at 18 mL/hr for 12 hours to provide 43.2 g lipids 4) In total, TPN to provide 1411 non-protein kcal and 1795 total kcal 5) Serum TG q /; Daily weights Addendum: 04/11/19 at [address] Amended: Links added.
[2019-04-11] MEDS: Trace element-5 inj. 1 ML in AA 5%/cal/electrolyte-TPN/D15W 2,000 ML IV SCH (15:08)
--- NOTE | 2019-04-11 16:29 | NUR ---
Per Dr Vanegas: decrease demand dose of cadd back to 0.3. Med dose changed.
--- NOTE | 2019-04-11 18:10 | NUR ---
Received report from BRUNO Lincoln. Patient is awake and alert on room air, in no apparent distress. Call light and items of frequent use within reach. Will continue to monitor.
--- NOTE | 2019-04-11 18:25 | NUR ---
Problems reprioritized. Patient report given, questions answered & plan of care reviewed with Xiomara CARR. Pt eating, slightly nauseas
[2019-04-11 20:00] VITALS: BP 102/50
[2019-04-11] MEDS: estradiol 1mg tablet PO SCH (20:01)
[2019-04-12] VITALS: BP 121/59
[2019-04-12] MEDS: HYDROmorphone/NS 1 mg/ml CADD 50 ML IV SCH ×7 (01:00→23:00)
--- NOTE | 2019-04-12 06:10 | NUR ---
Patient in room [facility] 340. I have received report from Xiomara CARR and had the opportunity to ask questions and assume patient care.
--- NOTE | 2019-04-12 06:15 | NUR ---
Problems reprioritized. Patient report given, questions answered & plan of care reviewed with BRUNO Gregg.
[2019-04-12 07:39] VITALS: BP 124/68
[2019-04-12] MEDS: pantoprazole 40 MG vial IV SCH ×2 (07:53→20:55)
[2019-04-12] MEDS: sucralfate 1gm/10ml UD suspension PO SCH ×4 (07:53→20:54)
[2019-04-12] MEDS: LIPASE/PROTEASE/AMYLASE 4,200 unit CAPSULE.DR PO SCH ×3 (07:53→20:53)
[2019-04-12] MEDS: duloxetine 20mg capsule.DR PO SCH (07:54)
[2019-04-12] MEDS: enoxaparin 40mg/0.4ml syringe SQ SCH (07:54)
[2019-04-12] MEDS: K and/or MAG REPLACEMENT MC SCH (07:54)
[2019-04-12] MEDS: MVI, adult No.4 with vit. K 10 ML in normal saline 500ml IV soln 500 ML IV SCH ×2 (09:01)
[2019-04-12 09:40] LABS: BASOPHILS % (AUTO) 0.8 % (0-1); EOSINOPHILS # (AUTO) 0.3 X10'3 (0-0.9); HEMATOCRIT 29.9 % (35.0-45.0); HEMOGLOBIN 9.8 g/dl (12.0-16.0); LYMPHOCYTES # (AUTO) 1.9 X10'3 (1.1-4.8); LYMPHOCYTES % (AUTO) 37.3 % (21-51); MEAN CORPUSCULAR VOLUME 75.7 FL (78-98); MEAN PLATELET VOLUME 8.8 FL (7.4-10.4); MONOCYTES # (AUTO) 0.5 X10'3 (0-0.9); MONOCYTES % (AUTO) 10.2 % (2-12); NEUTROPHILS # (AUTO) 2.4 X10'3 (1.8-7.7); NEUTROPHILS % (AUTO) 46.7 % (42-75); PLATELET COUNT 176 X10'3 (140-440); RED BLOOD COUNT 3.94 X10'6 (4.20-5.60); RED CELL DISTRIBUTION WIDTH 17.2 % (11.5-14.5); WHITE BLOOD COUNT 5.2 X10'3 (4.5-11.0)
[2019-04-12 09:51] LABS: ALANINE AMINOTRANSFERASE 31 U/L (12-78); ALKALINE PHOSPHATASE 70 IU/L (46-116); ANION GAP 7 (8-16); ASPARTATE AMINO TRANSFERASE 15 U/L (10-37); BILIRUBIN,TOTAL 0.4 MG/DL (0.1-1.0); BLOOD UREA NITROGEN 13 MG/DL (7-18); BUN/CREATININE RATIO 29.5 (6.6-38.0); CALCIUM 8.5 MG/DL (8.5-10.1); CHLORIDE 105 MMOL/L (99-107); CREATININE 0.44 MG/DL (0.40-0.90); GLUCOSE 137 MG/DL (70-104); PHOSPHORUS 4.5 MG/DL (2.3-4.5); POTASSIUM 3.7 MMOL/L (3.5-5.1); PREALBUMIN 12.2 MG/DL (19-36); SODIUM 142 MMOL/L (135-145); TOTAL CARBON DIOXIDE 29.6 MMOL/L (24-32); TOTAL PROTEIN 5.9 G/DL (6.4-8.2); eGFR > 90 ML/MIN
[2019-04-12] MEDS ORDERED: oxyCODONE/APAP 10/325mg tablet PO PRN (10:40)
[2019-04-12] MEDS: CADD PCA waste documentation MC PRN (11:38)
[2019-04-12 11:57] VITALS: BP 106/61
[2019-04-12] MEDS: HYDROmorphone 1 mg/ml syringe IV PRN ×2 (13:18→17:47)
[2019-04-12] MEDS: Trace element-5 inj. 1 ML in AA 5%/cal/electrolyte-TPN/D15W 2,000 ML IV SCH (15:52)
--- NOTE | 2019-04-12 16:00 | NUR ---
Pharmacy informed that percocet was approved by them with pt having allergy to tylenol. Percocet was given to patient. Pt was stating she was having pain. Nurse stated she was almost due for her percocet and patient stated, "Wait I thought I was getting Oyxcodone?" Nurse responded that percocet is oxycodone with tylenol. Patient then stated, "I am highly allergic to tylenol." Dr. Vanegas paged regarding pt was given percocet and has tylenol allergy. 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 Vital signs stable. Dr. Vanegas is now aware after second page. ordered oxycodone IR 5mg q6hr for pain in place of percocet. Will continue to monitor.
[2019-04-12 16:18] VITALS: BP 114/65
[2019-04-12] MEDS: oxyCODONE IR 5mg (immed. release) tablet PO PRN (16:24)
--- NOTE | 2019-04-12 17:00 | NUR ---
Patient stated she vomited and is unsure if she vomited oxycodone pill that was just taken. Pt vomited in toilet and flushed the toilet.
[2019-04-12] MEDS: ondansetron/PF 4mg/2ml inj IV PRN (17:06)
--- NOTE | 2019-04-12 18:13 | NUR ---
Problems reprioritized. Patient report given, questions answered & plan of care reviewed with Mahin CARR.
--- NOTE | 2019-04-12 18:30 | NUR ---
Patient in room [facility] 340. I have received report from KARIME CARR and had the opportunity to ask questions and assume patient care.
[2019-04-12] MEDS ORDERED: HYDROmorphone 1 mg/ml syringe IV ONE (19:40)
[2019-04-12] MEDS ORDERED: CADD PCA waste documentation MC SCH (19:45)
[2019-04-12 20:00] VITALS: BP 147/91
[2019-04-12] MEDS: estradiol 1mg tablet PO SCH (20:53)
[2019-04-12] MEDS: zolpidem 5mg tablet PO PRN (22:53)
[2019-04-13] VITALS: BP 117/67
[2019-04-13] MEDS: HYDROmorphone/NS 1 mg/ml CADD 50 ML IV SCH ×6 (01:00→11:00)
--- NOTE | 2019-04-13 06:30 | NUR ---
Patient in room [facility] 340. I have received report from Mahin CARR and had the opportunity to ask questions and assume patient care.
--- NOTE | 2019-04-13 06:30 | NUR ---
Problems reprioritized. Patient report given, questions answered & plan of care reviewed with LAUREN RN.
[2019-04-13] MEDS: LIPASE/PROTEASE/AMYLASE 4,200 unit CAPSULE.DR PO SCH ×3 (08:00→20:14)
[2019-04-13] MEDS: K and/or MAG REPLACEMENT MC SCH (08:00)
[2019-04-13] MEDS: duloxetine 20mg capsule.DR PO SCH (08:00)
[2019-04-13] MEDS: sucralfate 1gm/10ml UD suspension PO SCH ×4 (08:03→20:13)
[2019-04-13] MEDS: pantoprazole 40 MG vial IV SCH ×2 (08:04→20:08)
[2019-04-13] MEDS: enoxaparin 40mg/0.4ml syringe SQ SCH (08:06)
[2019-04-13 09:11] VITALS: BP 112/52
[2019-04-13 11:00] VITALS: BP 125/80
--- NOTE | 2019-04-13 12:33 | NUR ---
PT HAD BLEEDING FROM SITE AFTER GETTING UP TO USE RESTROOM. MANUAL PRESSURE HELD FOR 10 MINUTES, DRESSINGS CHANGED, SITE IS NOW CLEAN DRY AND INTACT. JOEL CARR
[2019-04-13] MEDS: MVI, adult No.4 with vit. K 10 ML in normal saline 500ml IV soln 500 ML IV SCH ×2 (12:51)
[2019-04-13] MEDS: oxyCODONE IR 5mg (immed. release) tablet PO PRN ×2 (12:51→21:21)
[2019-04-13] MEDS: ondansetron/PF 4mg/2ml inj IV PRN (12:59)
[2019-04-13 14:04] LABS: ALANINE AMINOTRANSFERASE 26 U/L (12-78); ALKALINE PHOSPHATASE 73 IU/L (46-116); ANION GAP 8 (8-16); ASPARTATE AMINO TRANSFERASE 11 U/L (10-37); BILIRUBIN,TOTAL 0.4 MG/DL (0.1-1.0); BLOOD UREA NITROGEN 15 MG/DL (7-18); BUN/CREATININE RATIO 35.7 (6.6-38.0); CALCIUM 8.3 MG/DL (8.5-10.1); CHLORIDE 104 MMOL/L (99-107); CREATININE 0.42 MG/DL (0.40-0.90); GLUCOSE 118 MG/DL (70-104); POTASSIUM 3.8 MMOL/L (3.5-5.1); SODIUM 139 MMOL/L (135-145); TOTAL CARBON DIOXIDE 27.1 MMOL/L (24-32); TOTAL PROTEIN 6.1 G/DL (6.4-8.2); eGFR > 90 ML/MIN
[2019-04-13] MEDS: HYDROmorphone 1 mg/ml syringe IV PRN ×3 (14:57→23:10)
[2019-04-13] MEDS: Trace element-5 inj. 1 ML in AA 5%/cal/electrolyte-TPN/D15W 2,000 ML IV SCH (15:02)
[2019-04-13] MEDS: normal saline 1000ml 1,000 ML IV SCH (15:11)
[2019-04-13] MEDS ORDERED: magnesium hydroxide 30ml (MOM) UD suspension PO ONE (18:25)
--- NOTE | 2019-04-13 18:30 | NUR ---
Problems reprioritized. Patient report given, questions answered & plan of care reviewed with Mahin CARR.
--- NOTE | 2019-04-13 18:35 | NUR ---
Patient in room [facility] 340. I have received report from LAUREN CARR and had the opportunity to ask questions and assume patient care.
[2019-04-13 20:00] VITALS: BP 118/61
[2019-04-13] MEDS: estradiol 1mg tablet PO SCH (20:13)
[2019-04-14] VITALS: BP 108/62
[2019-04-14] MEDS: HYDROmorphone 1 mg/ml syringe IV PRN ×3 (03:22→12:22)
[2019-04-14] MEDS: LIPASE/PROTEASE/AMYLASE 4,200 unit CAPSULE.DR PO SCH ×4 (04:24→17:53)
[2019-04-14] MEDS: oxyCODONE IR 5mg (immed. release) tablet PO PRN ×4 (05:10→23:45)
--- NOTE | 2019-04-14 06:30 | NUR ---
Problems reprioritized. Patient report given, questions answered & plan of care reviewed with NAUN CARR.
[2019-04-14] MEDS: K and/or MAG REPLACEMENT MC SCH (06:59)
[2019-04-14 07:00] VITALS: BP 111/59
[2019-04-14] MEDS: pantoprazole 40 MG vial IV SCH ×2 (07:58→20:13)
[2019-04-14] MEDS: sucralfate 1gm/10ml UD suspension PO SCH ×4 (07:58→20:59)
[2019-04-14] MEDS: enoxaparin 40mg/0.4ml syringe SQ SCH (07:59)
[2019-04-14] MEDS: duloxetine 20mg capsule.DR PO SCH (08:00)
[2019-04-14 11:00] VITALS: BP 119/60
[2019-04-14 11:06] LABS: ALANINE AMINOTRANSFERASE 22 U/L (12-78); ALBUMIN/GLOBULIN RATIO 0.9 (1.1-1.5); ALKALINE PHOSPHATASE 72 IU/L (46-116); ANION GAP 6 (8-16); ASPARTATE AMINO TRANSFERASE 14 U/L (10-37); BILIRUBIN,TOTAL 0.3 MG/DL (0.1-1.0); BLOOD UREA NITROGEN 15 MG/DL (7-18); BUN/CREATININE RATIO 30.6 (6.6-38.0); CALCIUM 8.4 MG/DL (8.5-10.1); CHLORIDE 106 MMOL/L (99-107); CREATININE 0.49 MG/DL (0.40-0.90); GLUCOSE 94 MG/DL (70-104); POTASSIUM 3.7 MMOL/L (3.5-5.1); SODIUM 140 MMOL/L (135-145); TOTAL CARBON DIOXIDE 27.8 MMOL/L (24-32); TOTAL PROTEIN 6.3 G/DL (6.4-8.2); eGFR > 90 ML/MIN
--- NOTE | 2019-04-14 11:51 | NUR ---
Reassessment: Patient continues receiving TPN and tolerating with no s/s refeeding syndrome. Diet has been advanced to regular/soft to chew. Patient documented with average 25% PO intake, not meeting nutrient needs with PO intake however nutrient needs are being met with TPN. Okay to continue TPN at this time given low PO intake. Pt s/p PICC replacement 04/13 per MD notes. Pt denies c/o abdominal pain or N/V per MD notes. Pt previously constipated with LBM 04/09, s/p x-ray which shows no evidence of bowel obstruction per report. Pt given MoM yesterday, now LBM 04/13. Wt stable throughout admit. Will continue to follow. Recommendations: 1) Continue mechanical soft regular diet 2) Continuous 2:1 Clinimix E /15 at 80 mL/hr to provide: 1920 mL total volume/day, 96 g protein, and 288 g dextrose. Dextrose load 3.57 mg/kg/min 3) Separate 216 mL 20% intralipids to run at 18 mL/hr for 12 hours to provide 43.2 g lipids 4) In total, TPN to provide 1411 non-protein kcal and 1795 total kcal 5) Serum TG q /; Daily weights 6) Routine bowel care Addendum: 04/14/19 at [address] Amended: Links added.
[2019-04-14] MEDS: MVI, adult No.4 with vit. K 10 ML in normal saline 500ml IV soln 500 ML IV SCH ×2 (12:21)
[2019-04-14] MEDS ORDERED: OXYC-658 PO (14:00)
[2019-04-14] MEDS ORDERED: DULO20CA50 PO (14:01)
[2019-04-14] MEDS: Trace element-5 inj. 1 ML in AA 5%/cal/electrolyte-TPN/D15W 2,000 ML IV SCH (17:32)
[2019-04-14] MEDS ORDERED: SUCR1TAB34 PO (17:32)
[2019-04-14] MEDS ORDERED: PANT-47 PO (17:32)
[2019-04-14 19:00] VITALS: BP 128/67
--- NOTE | 2019-04-14 19:00 | NUR ---
Problems reprioritized. Patient report given, questions answered & plan of care reviewed with JUNIOR CARR.
--- NOTE | 2019-04-14 20:30 | NUR ---
Dr. Johnson was phoned as pt is crying in pain, family member in room asking why we cant do more for her and give her back the CADD pump since she was doing better on that. Pt and family informed that pt will be going home and unable to be on CADD at home. Ordered one time dose of Dilaudid PO at this time. Addendum: 04/14/19 at 2049 by Valeria Block RN Amended: Links added.
[2019-04-14] MEDS ORDERED: HYDROmorphone 2mg tablet PO ONE (20:35)
[2019-04-14] MEDS: estradiol 1mg tablet PO SCH (20:58)
[2019-04-14] MEDS: zolpidem 5mg tablet PO PRN (23:44)
[2019-04-15] VITALS: BP 116/64
--- NOTE | 2019-04-15 06:00 | NUR ---
Problems reprioritized. Patient report given, questions answered & plan of care reviewed with Felicita CARR. Addendum: 04/15/19 at 0658 by Valeria Block RN Amended: Links added.
[2019-04-15] MEDS: oxyCODONE IR 5mg (immed. release) tablet PO PRN ×2 (06:13→12:33)
[2019-04-15 06:33] LABS: ALANINE AMINOTRANSFERASE 22 U/L (12-78); ALBUMIN/GLOBULIN RATIO 0.9 (1.1-1.5); ALKALINE PHOSPHATASE 69 IU/L (46-116); ANION GAP 7 (8-16); ASPARTATE AMINO TRANSFERASE 13 U/L (10-37); BILIRUBIN,TOTAL 0.2 MG/DL (0.1-1.0); BLOOD UREA NITROGEN 15 MG/DL (7-18); CALCIUM 8.6 MG/DL (8.5-10.1); CHLORIDE 107 MMOL/L (99-107); GLUCOSE 94 MG/DL (70-104); PHOSPHORUS 3.7 MG/DL (2.3-4.5); POTASSIUM 3.9 MMOL/L (3.5-5.1); PREALBUMIN 15.1 MG/DL (19-36); SODIUM 141 MMOL/L (135-145); TOTAL PROTEIN 6.2 G/DL (6.4-8.2); TRIGLYCERIDES 84 MG/DL (20-135); eGFR > 90 ML/MIN
--- NOTE | 2019-04-15 06:53 | NUR ---
Patient in room [facility] 340. I have received report from BRUNO Shaw and had the opportunity to ask questions and assume patient care.
[2019-04-15 07:21] VITALS: BP 112/75
[2019-04-15] MEDS: LIPASE/PROTEASE/AMYLASE 4,200 unit CAPSULE.DR PO SCH ×2 (08:00→12:32)
[2019-04-15] MEDS: duloxetine 20mg capsule.DR PO SCH (08:00)
[2019-04-15] MEDS: sucralfate 1gm/10ml UD suspension PO SCH ×2 (08:49→12:35)
[2019-04-15] MEDS: pantoprazole 40 MG vial IV SCH (08:50)
[2019-04-15] MEDS: enoxaparin 40mg/0.4ml syringe SQ SCH (08:50)
--- NOTE | 2019-04-15 09:00 | NUR ---
During administration of morning medications, pt stated that she does not take cymbalta, and has not taken if for several years. When asked why she has been refusing this medication, pt stated that 'it makes her feel weird'. The pt also stated that she was not sure why it had been resumed and I explained that due to her history of depression and chronic pain, the hospitalist felt that she would benefit from restarting cymbalta. The pt stated that she has never had a diagnosis of depression and wanted to know how to remove it from her medical history. buttermaker and hospitalist were notified.
[2019-04-15] MEDS: MVI, adult No.4 with vit. K 10 ML in normal saline 500ml IV soln 500 ML IV SCH ×2 (11:00)
--- NOTE | 2019-04-15 16:17 | NUR ---
Pt discharged to home with all belongings, in private vehicle, accompanied by son. Discharge instructions and medications reviewed, new prescriptions delivered by [facility]. Pt instructed to follow up with PCP and [facility]. Pt declined PICC dressing to be changed prior to discharge. Pt escorted to front lobby via wheelchair by PCT.
== END 2019-04-15 14:03 | disposition home health service (06) | DRG 241 ==
LOC: ER 20:25 → OBSVTOIN 04-07 02:02 → SUR 3N 04-07 02:02 → CMPBEDREQ 04-07 03:25 → SUR 3N 04-08 06:00
PROVIDERS: ADMIT Hospitalist; ATTEND Family Medicine
PROC: 0DB68ZX Excision of Stomach, Via Natural or Artificial Opening Endoscopic, Diagnostic (ICD-10-PCS; 2019-04-08)
PROC: 02HV33Z Insertion of Infusion Device into Superior Vena Cava, Percutaneous Approach (ICD-10-PCS; 2019-04-10)
PROC: 02HV33Z Insertion of Infusion Device into Superior Vena Cava, Percutaneous Approach (ICD-10-PCS; principal; 2019-04-13)
PROC: 4A02X4A Measurement of Cardiac Electrical Activity, Guidance, External Approach (ICD-10-PCS; 2019-04-13)
PROC: B548ZZA Ultrasonography of Superior Vena Cava, Guidance (ICD-10-PCS; 2019-04-13)
DX: K29.70 Gastritis, unspecified, without bleeding (principal); K56.7 Ileus, unspecified; K86.1 Other chronic pancreatitis; F32.9 Major depressive disorder, single episode, unspecified; G89.4 Chronic pain syndrome; F12.90 Cannabis use, unspecified, uncomplicated; F41.9 Anxiety disorder, unspecified; Z88.8 Allergy status to other drugs, medicaments and biological substances; Z91.030 Bee allergy status; Z91.013 Allergy to seafood; Z91.018 Allergy to other foods; Z82.0 Family history of epilepsy and other diseases of the nervous system; Z83.3 Family history of diabetes mellitus; Z90.411 Acquired partial absence of pancreas; Z90.49 Acquired absence of other specified parts of digestive tract; Z90.710 Acquired absence of both cervix and uterus; Z82.49 Family history of ischemic heart disease and other diseases of the circulatory system; Z98.0 Intestinal bypass and anastomosis status
CPT/HCPCS: 36415; 36569; 43239; 71045; 74018; 74176; 76937; 80048; 80053; 81003; 81025; 82948; 83605; 83690; 83735; 84100; 84134; 84478; 85025; 85610; 87081; 93005; 96374; 96375; 96376; 99152; 99285; A4620; C9113; G0378; J0780; J1170; J1650; J1885; J2250; J2270; J2405; J3010; J3480; J7030; J7040

== ENCOUNTER 2021-01-14 21:04 | Inpatient (IN) | payer BC, MEDICAID ==
[~2021-01-14] VITALS: Ht 177.8 cm; Wt 57.2 kg
[~2021-01-14 21:04] MED LIST changes: -BISA-155 PO; -DICY10CA88 PO; +DULO20CA50 PO; -GOLYS PO; -HYDR2TAB28 PO; -METR-159 PO; -OXYC10TA57 PO; +PANT-47 PO; +POLY119P2 PO; +SUCR1TAB34 PO; +SUMA100T16 PO; +TIZA4TAB11 PO
[2021-01-14] MEDS ORDERED: normal saline 1000ml 1,000 ML IV ONE (22:15)
--- NOTE | 2021-01-14 22:22 | NUR ---
verbal order given by Dr John to access patient's existing picc line
[2021-01-14 22:47] LABS: BASOPHILS % (AUTO) 0.4 % (0-1); EOSINOPHILS % (AUTO) 0.5 % (0-6); HEMOGLOBIN 12.5 g/dl (12.0-16.0); LYMPHOCYTES # (AUTO) 1.4 X10'3 (1.1-4.8); LYMPHOCYTES % (AUTO) 21.8 % (21-51); MEAN CORPUSCULAR HEMOGLOBIN 30.3 PG (27.0-31.0); MEAN CORPUSCULAR HGB CONC 33.8 g/dL (33.0-36.5); MEAN CORPUSCULAR VOLUME 89.5 FL (78-98); MEAN PLATELET VOLUME 9.4 FL (7.4-10.4); MONOCYTES # (AUTO) 0.3 X10'3 (0-0.9); MONOCYTES % (AUTO) 5.3 % (2-12); NEUTROPHILS # (AUTO) 4.7 X10'3 (1.8-7.7); PLATELET COUNT 199 X10'3 (140-440); RED BLOOD COUNT 4.13 X10'6 (4.20-5.60); RED CELL DISTRIBUTION WIDTH 13.2 % (11.5-14.5); WHITE BLOOD COUNT 6.5 X10'3 (4.5-11.0)
[2021-01-14] MEDS ORDERED: morphine 10mg/ml inj. IV ONE (22:55)
[2021-01-14 23:05] LABS: HCG SERUM QL NEGATIVE
[2021-01-14 23:08] LABS: ALANINE AMINOTRANSFERASE 33 U/L (12-78); ALBUMIN 3.4 G/DL (3.4-5.0); ALBUMIN/GLOBULIN RATIO 1.2 (1.1-1.5); ALKALINE PHOSPHATASE 92 IU/L (46-116); ANION GAP 8 (8-16); ASPARTATE AMINO TRANSFERASE 19 U/L (10-37); BILIRUBIN,TOTAL 0.3 MG/DL (0.1-1.0); BLOOD UREA NITROGEN 14 MG/DL (7-18); CALCIUM 8.5 MG/DL (8.5-10.1); CHLORIDE 106 MMOL/L (99-107); CREATININE 0.56 MG/DL (0.40-0.90); GLUCOSE 88 MG/DL (70-104); LIPASE < 50 U/L (73-393); SODIUM 142 MMOL/L (135-145); TOTAL CARBON DIOXIDE 28.3 MMOL/L (24-32); TOTAL PROTEIN 6.3 G/DL (6.4-8.2); eGFR > 90 ML/MIN
[2021-01-14] MEDS ORDERED: iohexol 300mg/ml 100ml inj. ONE (23:14)
[2021-01-14] MEDS ORDERED: morphine 4 MG/ML inj SYRINge IV ONE (23:45)
[2021-01-15] MEDS ORDERED: HYDROmorphone 1 mg/ml syringe IV ONE (01:10)
[2021-01-15] MEDS ORDERED: ERGO500041 PO (01:31)
[2021-01-15] MEDS ORDERED: BUPR8TAB4 SL (01:35)
--- NOTE | 2021-01-15 02:15 | NUR ---
admission provider at bedside for patient assessment and discussion of plan of care
[2021-01-15] MEDS ORDERED: SUMAtriptan 25 MG tablet PO PRN (02:40)
[2021-01-15] MEDS ORDERED: naloxone 0.4 mg/ml inj IV PRN (02:40)
[2021-01-15] MEDS: HYDROmorph./NS 0.2 mg/ml CADD 100 ML IV SCH ×8 (03:32→17:00)
[2021-01-15 04:20] VITALS: BP 109/47
--- NOTE | 2021-01-15 04:20 | NUR ---
RECEIVED PT FROM ER VIA VIVIANE FOLLOWING VERBAL REPORT FROM KARIME
--- NOTE | 2021-01-15 06:30 | NUR ---
Problems reprioritized. Patient report given, questions answered & plan of care reviewed with JOANA.
[2021-01-15 07:30] VITALS: BP 106/48
[2021-01-15] MEDS: pantoprazole 40mg Tablet.DR PO SCH (07:49)
[2021-01-15] MEDS: LIPASE/PROTEASE/AMYLASE 4,200 unit CAPSULE.DR PO SCH ×3 (07:51→21:00)
[2021-01-15] MEDS: heparin, porcine 5000 units/ml vial SQ SCH ×2 (07:51→20:25)
[2021-01-15] MEDS: BUPRENORPHINE HCL 8 MG SL SCH ×2 (07:52→20:00)
[2021-01-15] MEDS ORDERED: duloxetine 20mg capsule.DR PO SCH (08:00)
[2021-01-15] MEDS ORDERED: tizanidine 4mg tablet PO PRN (08:00)
--- NOTE | 2021-01-15 08:39 | NUR ---
Malnutrition/TPN consults: Pt reports 2-13 lb wt loss with decreased appetite per malnutrition risk screen with RN. Current scaled wt is stable with scaled wt hx in EMR. Per ED report pt reports having trouble keeping fluids down due to associated N/V. Pt with significant h/o GI surgeries including the Whipple procedure so has been TPN dependent for several years. Likely that estimated nutrient needs were being met despite recent decrease in PO intake. Pt with no documented decrease in muscle strength or edema. Pt appears well developed well nourished per ED report. Pt currently lacks a minimum of two criteria for malnutrition. Pt already with a PICC line in place d/t being TPN dependent. TPN recommendations below have been d/w clinical pharmacist. Pt continues on clear liquid diet at this time. Pt presented with c/o abdominal pain with h/o pancreatitis. Pancreatic enzymes active on med list. Pt reports her PCP told her that her most recent lab-work showed that she had a decrease in her liver function per ED report, LFTs currently WNL. LBM 01/13. Will continue to follow closely. Recommendations: 1) Continuous 2:1 Clinimix-E 12/28 with goal rate of 80 mL/hr. To provide 1920 mL total volume, 96 g AA, 384 g dextrose (4.93 mg/kg/min dext load), and 1689 kcal 2) Additional 168 mL 20% intralipids with goal rate of 14 mL/hr to run for 12 hours. To provide 33.6 g lipids and 336 kcal; TPN and lipids combined to provide 2088 mL total volume/day and 2025 kcal 3) Prealbumin and TG q Friday/ 4) Daily weights 5) Continue clear liquid diet 6) Continue Pancreaze with PO diet Addendum: 01/15/21 at [address] Amended: Links added.
--- NOTE | 2021-01-15 09:34 | NUR ---
Spoke with Сергей in pharmacy, states that he is trying to get TPN information from the facility. TPN will start tonight at 1999.
[2021-01-15 11:00] VITALS: BP 102/44
--- NOTE | 2021-01-15 11:21 | NUR ---
F/u: Received patient's previous TPN rx from clinical pharmacist. Pt previously receiving a custom TPN using 560 mL 10% AA, 429 mL D70, and 350 mL 20% intralipids totalin mL total volume/day, 56 g AA, 300 g dextrose (3.85 mg/kg/min dext load), 70 g lipids, and 1944 kcal. D/w MD recommendation to use standard Clinimix formula to better meet patient's estimated nutrient needs while in the hospital and to reduce lipids, MD galvez. Clinical pharmacist aware. Will continue to follow closely and monitor for TPN tolerance. Addendum: 01/15/21 at [address] Amended: Links added.
[2021-01-15] MEDS ORDERED: magnesium 4gm in 100ml NS 100 ML IV PRN (11:45)
[2021-01-15] MEDS ORDERED: magnesium 2GM in 50ml NS 50 ML IV PRN (11:45)
[2021-01-15] MEDS ORDERED: Dextrose 10%-water IV solution 1,000 ML IV PRN (11:45)
[2021-01-15] MEDS ORDERED: magnesium Cl slow-release 64mg tablet PO PRN (11:45)
[2021-01-15 12:39] LABS: PHOSPHORUS 3.2 MG/DL (2.3-4.5); PREALBUMIN 19.3 MG/DL (19-36)
--- NOTE | 2021-01-15 18:15 | NUR ---
Report received from Elisa CARR. questions asked and answered, Care assumed by myself.
--- NOTE | 2021-01-15 18:33 | NUR ---
Problems reprioritized. Patient report given, questions answered & plan of care reviewed with Margarita CARR.
[2021-01-15 19:00] VITALS: BP 99/44
[2021-01-15] MEDS ORDERED: ZINC/COPPER/MANGANESE/SELENIUM 1 ML, chromic chloride inj. 10 MCG in AA 5%/CALCIUM/LYTE... IV SCH (20:00)
--- NOTE | 2021-01-15 20:00 | NUR ---
cyclical TPN at home, initiated here at 1999. allowed cl liquids, patient knows limitations Addendum: 01/15/21 at 2340 by Margarita Hutchison RN Amended: Links added.
[2021-01-15] MEDS ORDERED: oxyCODONE IR 5mg (immed. release) tablet PO PRN (20:10)
[2021-01-15] MEDS ORDERED: HYDROmorphone 1 mg/ml syringe IV PRN (20:10)
--- NOTE | 2021-01-15 20:32 | NUR ---
TPN scanned , computer did not read it. administered at 30 cc hr, to increase rate at 1 hour to goal rate.
[2021-01-15] MEDS: zolpidem 5mg tablet PO SCH (21:00)
[2021-01-15] MEDS: fat emulsion IV bag 250 ML IV SCH ×2 (21:23→22:00)
[2021-01-15] MEDS: ondansetron/PF 4mg/2ml inj IV PRN (22:05)
[2021-01-15] MEDS: duloxetine 20mg capsule.DR PO SCH (22:08)
[2021-01-15] MEDS: estradiol 1mg tablet PO SCH (22:08)
[2021-01-16 00:05] VITALS: BP 108/59
[2021-01-16 03:42] LABS: BASOPHILS % (AUTO) 0.6 % (0-1); EOSINOPHILS # (AUTO) 0.1 X10'3 (0-0.9); EOSINOPHILS % (AUTO) 1.7 % (0-6); HEMATOCRIT 35.8 % (35.0-45.0); HEMOGLOBIN 12.2 g/dl (12.0-16.0); LYMPHOCYTES # (AUTO) 1.6 X10'3 (1.1-4.8); LYMPHOCYTES % (AUTO) 36.5 % (21-51); MEAN CORPUSCULAR HEMOGLOBIN 30.8 PG (27.0-31.0); MEAN CORPUSCULAR HGB CONC 34.2 g/dL (33.0-36.5); MEAN PLATELET VOLUME 9.6 FL (7.4-10.4); MONOCYTES # (AUTO) 0.3 X10'3 (0-0.9); MONOCYTES % (AUTO) 6.9 % (2-12); NEUTROPHILS # (AUTO) 2.4 X10'3 (1.8-7.7); NEUTROPHILS % (AUTO) 54.3 % (42-75); PLATELET COUNT 165 X10'3 (140-440); RED BLOOD COUNT 3.98 X10'6 (4.20-5.60); RED CELL DISTRIBUTION WIDTH 13.1 % (11.5-14.5); WHITE BLOOD COUNT 4.4 X10'3 (4.5-11.0)
[2021-01-16 03:56] LABS: ALANINE AMINOTRANSFERASE 37 U/L (12-78); ALBUMIN 3.1 G/DL (3.4-5.0); ALBUMIN/GLOBULIN RATIO 1.1 (1.1-1.5); ALKALINE PHOSPHATASE 89 IU/L (46-116); ANION GAP 4 (8-16); ASPARTATE AMINO TRANSFERASE 22 U/L (10-37); BILIRUBIN,TOTAL 0.3 MG/DL (0.1-1.0); BLOOD UREA NITROGEN 9 MG/DL (7-18); BUN/CREATININE RATIO 16.1 (6.6-38.0); CALCIUM 8.4 MG/DL (8.5-10.1); CHLORIDE 108 MMOL/L (99-107); CREATININE 0.56 MG/DL (0.40-0.90); GLUCOSE 108 MG/DL (70-104); MAGNESIUM 1.9 MG/DL (1.5-2.4); PHOSPHORUS 3.7 MG/DL (2.3-4.5); POTASSIUM 3.7 MMOL/L (3.5-5.1); SODIUM 140 MMOL/L (135-145); TOTAL CARBON DIOXIDE 28.5 MMOL/L (24-32); TOTAL PROTEIN 5.9 G/DL (6.4-8.2); eGFR > 90 ML/MIN
--- NOTE | 2021-01-16 05:13 | NUR ---
unable to document CADD checks, unaware of CADD dc, patient remains in 10/10 pain with periods of crying and writhing in pain. 1900 12.2 MG given, 61 / 99 attempts, pain 10 2100 CADD setting remain 0 continuous, 10" lockout, .2 mg dose 2300 14.6 mg given, 63/100 attempts, pain @ 10 37.5 mg left 0100 settings unchanged 0300 19.4 mg given, 77/120 attempts, 21.7 mg left 0500 15.6 mg givedn 78/128 attempts, 20.7 mg left
--- NOTE | 2021-01-16 06:10 | NUR ---
Report given to Latonia RN, questions asked and answered, patient care assumed by Latonia. Patient finally able to sleep at 0615
[2021-01-16 07:00] VITALS: BP 106/50
[2021-01-16] MEDS: BUPRENORPHINE HCL 8 MG SL SCH (08:00)
[2021-01-16] MEDS: LIPASE/PROTEASE/AMYLASE 4,200 unit CAPSULE.DR PO SCH ×3 (08:00→20:25)
--- NOTE | 2021-01-16 08:18 | NUR ---
PAGER ID: [phone] MESSAGE: Jose KIRK [id number]: PATIENT VERY PAINFUL CRYING THROUGH THE NIGHT. NOC SHIFT DID NOT DC CADD. STANDARD SETTINGS ON THAT IS STILL NOT EFFECTIVE. THANK YOU, GILMA [phone]
[2021-01-16] MEDS ORDERED: HYDROmorphone 1 mg/ml syringe IV PRN ×2 (08:30→08:55)
[2021-01-16] MEDS ORDERED: HYDROmorph./NS 0.2 mg/ml CADD 100 ML IV SCH (09:00)
[2021-01-16] MEDS: pantoprazole 40mg Tablet.DR PO SCH (09:04)
[2021-01-16] MEDS: heparin, porcine 5000 units/ml vial SQ SCH ×2 (09:05→19:04)
[2021-01-16] MEDS: oxyCODONE IR 5mg (immed. release) tablet PO SCH ×3 (09:29→20:14)
[2021-01-16] MEDS: HYDROmorph./NS 0.2 mg/ml CADD 100 ML IV SCH ×4 (11:00→13:00)
[2021-01-16] MEDS: CADD PCA waste documentation MC PRN ×2 (11:53→15:35)
[2021-01-16 12:20] VITALS: BP 121/64
--- NOTE | 2021-01-16 13:42 | NUR ---
BRUNO TC: DO requests TPN to return to cyclic using custom TPN similar to what pt received at home COLLECTION CARD CLERK. RD reviewed PN options w/ DO who does request custom PN as close as possible to pt home regimen though taking pt DX into consideration. Updated PN recs below; pt dex loading at goal to be 7.38mg/kg/min though pt receives 7.36mg/kg/min at home so will likely tolerate. RD collaborated w/ clinical pharmacist for updated PN recs; intralipids to run for 12 hours each day separately to minimize cyclic goal rate. LBM 01/13. Will monitor for PN tolerance w/ updated custom recs below. Recommendations: 1) Custom Cyclic TPN to run 8391-5403 per DO using 850ml 10% AA and 410ml D70. Separate 200ml 20% intralipids to run for 12 hours daily at 16.67ml/hr. Initiate at 30ml/hr for first 2 hours then advance to goal rate 142.5ml/hr for 8 hours followed by return to 30ml/hr for final 2 hours of infusion each day. To provide 1460mL total volume, 85g AA, 287g dextrose (7.38mg/kg/min dext load), 40g lipids, and 1716 total kcals 2) Prealbumin and TG q Friday/; daily wts 3) monitor for signs of refeeding and PN tolerance 4) Continue clear liquid diet 5) Continue Pancreaze with PO diet 6) IF prolonged poor PO intolerance w/ chronic pancreatitis consider EN via Jejunum to meet long-term nutrition needs Addendum: 01/16/21 at [address] Amended: Links added.
--- NOTE | 2021-01-16 14:50 | NUR ---
PAGER ID: [phone] MESSAGE: john PelayoB: need a signature on TPN orders from dietary. also have a question about pain medication.. bam, sandy [phone]
[2021-01-16] MEDS ORDERED: HYDROmorphone inj. 0.5 MG/0.5 ML DISP.SYRIN IV PRN (15:45)
--- NOTE | 2021-01-16 15:50 | NUR ---
Spoke with pharmacist. He wanted me to pass on the message to noc shift that the TPN will start tonight @30mls/hr x 2 hrs, then increase to goal rate of 142.5mls/hr x 8 hrs, then it will be decreased back down to 30mls/hr x 2 hrs before it is dc'd. this will run along with the lipids through the night. will relay this message to noc shift RN that assumes care.
[2021-01-16] MEDS ORDERED: ZINC/COPPER/MANGANESE/SELENIUM 0.5 ML, chromic chloride inj. 5 MCG in AA 5%/CALCIUM/LYT... IV SCH (16:00)
--- NOTE | 2021-01-16 18:03 | NUR ---
Problems reprioritized. Patient report given, questions answered & plan of care reviewed with BRUNO Solano.
--- NOTE | 2021-01-16 18:20 | NUR ---
Patient in room [facility] 345B. I have received report from BRUNO Sherwood and had the opportunity to ask questions and assume patient care.
[2021-01-16 19:00] VITALS: BP 115/50
[2021-01-16] MEDS: HYDROmorphone 1 mg/ml syringe IV PRN ×3 (19:05→23:15)
[2021-01-16] MEDS ORDERED: TOTAL PARENTERAL NUTRITION IV SCH ×9 (20:00)
[2021-01-16] MEDS ORDERED: fat emulsion IV bag 250 ML IV SCH (20:00)
[2021-01-16] MEDS ORDERED: AMINO ACID IV SCH ×9 (20:00)
[2021-01-16] MEDS ORDERED: [UNRECOGNIZED DRUG - OTHER] IV SCH ×9 (20:00)
[2021-01-16] MEDS: estradiol 1mg tablet PO SCH (20:13)
[2021-01-16] MEDS: duloxetine 20mg capsule.DR PO SCH (20:14)
[2021-01-16] MEDS: [UNRECOGNIZED DRUG - OTHER] IV SCH ×9 (20:15)
[2021-01-16] MEDS: POTASSIUM CL IV SCH ×9 (20:15)
[2021-01-16] MEDS: SODIUM CL IV SCH ×9 (20:15)
[2021-01-16] MEDS: CALCIUM GLUCONATE IV SCH ×9 (20:15)
[2021-01-16] MEDS: MAGNESIUM IV SCH ×9 (20:15)
[2021-01-16] MEDS: diatr meglu/diatrizoate 30ml oral sol.-(3 dose) bottle PO SCH (20:22)
[2021-01-16] MEDS: zolpidem 5mg tablet PO SCH (20:23)
[2021-01-16] MEDS: fat emulsion IV bag 250 ML IV SCH (20:35)
--- NOTE | 2021-01-16 23:15 | NUR ---
Dilaudid given IV 1 mg at 2315. Med scan and administration assessment not recorded in OCT. PAM timed out medication and it was not properly saved. Assured it was given as stated in record!
[2021-01-17] MEDS: HYDROmorphone 1 mg/ml syringe IV PRN ×10 (01:48→23:39)
[2021-01-17] MEDS: oxyCODONE IR 5mg (immed. release) tablet PO SCH ×4 (02:20→20:48)
[2021-01-17 05:07] LABS: BASOPHILS % (AUTO) 0.5 % (0-1); EOSINOPHILS # (AUTO) 0.1 X10'3 (0-0.9); EOSINOPHILS % (AUTO) 1.4 % (0-6); HEMATOCRIT 36.2 % (35.0-45.0); HEMOGLOBIN 12.3 g/dl (12.0-16.0); LYMPHOCYTES % (AUTO) 30.9 % (21-51); MEAN CORPUSCULAR HEMOGLOBIN 30.5 PG (27.0-31.0); MEAN CORPUSCULAR HGB CONC 33.9 g/dL (33.0-36.5); MEAN CORPUSCULAR VOLUME 90.2 FL (78-98); MEAN PLATELET VOLUME 9.7 FL (7.4-10.4); MONOCYTES # (AUTO) 0.5 X10'3 (0-0.9); MONOCYTES % (AUTO) 7.6 % (2-12); NEUTROPHILS # (AUTO) 3.9 X10'3 (1.8-7.7); NEUTROPHILS % (AUTO) 59.6 % (42-75); PLATELET COUNT 175 X10'3 (140-440); RED BLOOD COUNT 4.02 X10'6 (4.20-5.60); RED CELL DISTRIBUTION WIDTH 13.5 % (11.5-14.5); WHITE BLOOD COUNT 6.5 X10'3 (4.5-11.0)
[2021-01-17 05:19] LABS: ALANINE AMINOTRANSFERASE 32 U/L (12-78); ALBUMIN/GLOBULIN RATIO 1.1 (1.1-1.5); ALKALINE PHOSPHATASE 85 IU/L (46-116); ANION GAP 2 (8-16); ASPARTATE AMINO TRANSFERASE 16 U/L (10-37); BILIRUBIN,TOTAL 0.3 MG/DL (0.1-1.0); BLOOD UREA NITROGEN 17 MG/DL (7-18); BUN/CREATININE RATIO 29.8 (6.6-38.0); CALCIUM 8.3 MG/DL (8.5-10.1); CHLORIDE 110 MMOL/L (99-107); CREATININE 0.57 MG/DL (0.40-0.90); GLUCOSE 91 MG/DL (70-104); MAGNESIUM 1.9 MG/DL (1.5-2.4); PHOSPHORUS 2.6 MG/DL (2.3-4.5); POTASSIUM 4.4 MMOL/L (3.5-5.1); SODIUM 141 MMOL/L (135-145); TOTAL CARBON DIOXIDE 28.8 MMOL/L (24-32); TOTAL PROTEIN 5.8 G/DL (6.4-8.2); eGFR > 90 ML/MIN
--- NOTE | 2021-01-17 06:36 | NUR ---
Problems reprioritized. Patient report given, questions answered & plan of care reviewed with BRUNO Sherwood.
[2021-01-17] MEDS: pantoprazole 40mg Tablet.DR PO SCH (06:43)
[2021-01-17] MEDS: diatr meglu/diatrizoate 30ml oral sol.-(3 dose) bottle PO SCH ×2 (07:08→09:53)
[2021-01-17] MEDS: LIPASE/PROTEASE/AMYLASE 4,200 unit CAPSULE.DR PO SCH ×3 (07:08→21:00)
[2021-01-17] MEDS: heparin, porcine 5000 units/ml vial SQ SCH ×2 (07:09→19:21)
[2021-01-17 07:30] VITALS: BP 99/55
[2021-01-17] MEDS ORDERED: iohexol 300mg/ml 100ml inj. ONE (09:58)
--- NOTE | 2021-01-17 10:07 | NUR ---
picked up for CT scan
[2021-01-17] MEDS: ondansetron/PF 4mg/2ml inj IV PRN ×2 (10:22→19:21)
[2021-01-17 10:56] VITALS: BP 107/46
[2021-01-17 11:20] VITALS: BP 115/60
[2021-01-17 18:00] VITALS: BP 113/57
--- NOTE | 2021-01-17 18:12 | NUR ---
Problems reprioritized. Patient report given, questions answered & plan of care reviewed with BRUNO Solano & BRUNO Perez.
--- NOTE | 2021-01-17 18:39 | NUR ---
Patient in room [facility] 345. I have received report from Kaela CARR and had the opportunity to ask questions and assume patient care.
[2021-01-17] MEDS ORDERED: MAGNESIUM IV SCH ×9 (20:00)
[2021-01-17] MEDS ORDERED: SODIUM CL IV SCH ×9 (20:00)
[2021-01-17] MEDS ORDERED: CALCIUM GLUCONATE IV SCH ×9 (20:00)
[2021-01-17] MEDS ORDERED: POTASSIUM CL IV SCH ×9 (20:00)
[2021-01-17] MEDS ORDERED: [UNRECOGNIZED DRUG - OTHER] IV SCH ×9 (20:00)
[2021-01-17] MEDS: fat emulsion IV bag 250 ML IV SCH (20:43)
[2021-01-17] MEDS: POTASSIUM CL IV SCH ×9 (20:44)
[2021-01-17] MEDS: CALCIUM GLUCONATE IV SCH ×9 (20:44)
[2021-01-17] MEDS: [UNRECOGNIZED DRUG - OTHER] IV SCH ×9 (20:44)
[2021-01-17] MEDS: duloxetine 20mg capsule.DR PO SCH (20:44)
[2021-01-17] MEDS: MAGNESIUM IV SCH ×9 (20:44)
[2021-01-17] MEDS: SODIUM CL IV SCH ×9 (20:44)
[2021-01-17] MEDS: zolpidem 5mg tablet PO SCH (20:44)
[2021-01-17] MEDS: estradiol 1mg tablet PO SCH (20:44)
[2021-01-17 23:45] VITALS: BP 115/60
[2021-01-18] MEDS: oxyCODONE IR 5mg (immed. release) tablet PO SCH ×4 (01:44→21:01)
[2021-01-18] MEDS: HYDROmorphone 1 mg/ml syringe IV PRN ×9 (01:45→22:13)
[2021-01-18 06:22] LABS: BASOPHILS % (AUTO) 0.4 % (0-1); EOSINOPHILS # (AUTO) 0.1 X10'3 (0-0.9); EOSINOPHILS % (AUTO) 1.3 % (0-6); HEMATOCRIT 36.4 % (35.0-45.0); HEMOGLOBIN 12.3 g/dl (12.0-16.0); LYMPHOCYTES # (AUTO) 1.7 X10'3 (1.1-4.8); MEAN CORPUSCULAR HEMOGLOBIN 30.5 PG (27.0-31.0); MEAN CORPUSCULAR HGB CONC 33.9 g/dL (33.0-36.5); MEAN CORPUSCULAR VOLUME 89.8 FL (78-98); MEAN PLATELET VOLUME 10.6 FL (7.4-10.4); MONOCYTES # (AUTO) 0.9 X10'3 (0-0.9); MONOCYTES % (AUTO) 10.5 % (2-12); NEUTROPHILS # (AUTO) 5.7 X10'3 (1.8-7.7); NEUTROPHILS % (AUTO) 67.8 % (42-75); PLATELET COUNT 167 X10'3 (140-440); RED BLOOD COUNT 4.05 X10'6 (4.20-5.60); RED CELL DISTRIBUTION WIDTH 13.3 % (11.5-14.5); WHITE BLOOD COUNT 8.4 X10'3 (4.5-11.0)
[2021-01-18 06:25] LABS: ALANINE AMINOTRANSFERASE 33 U/L (12-78); ALBUMIN 3.1 G/DL (3.4-5.0); ALBUMIN/GLOBULIN RATIO 1.1 (1.1-1.5); ALKALINE PHOSPHATASE 89 IU/L (46-116); ANION GAP 6 (8-16); ASPARTATE AMINO TRANSFERASE 18 U/L (10-37); BILIRUBIN,TOTAL 0.4 MG/DL (0.1-1.0); BLOOD UREA NITROGEN 19 MG/DL (7-18); BUN/CREATININE RATIO 31.7 (6.6-38.0); CALCIUM 8.4 MG/DL (8.5-10.1); CHLORIDE 108 MMOL/L (99-107); GLUCOSE 64 MG/DL (70-104); MAGNESIUM 1.9 MG/DL (1.5-2.4); POTASSIUM 3.9 MMOL/L (3.5-5.1); PREALBUMIN 15.8 MG/DL (19-36); SODIUM 142 MMOL/L (135-145); TOTAL CARBON DIOXIDE 28.3 MMOL/L (24-32); TRIGLYCERIDES 44 MG/DL (20-135); eGFR > 90 ML/MIN
--- NOTE | 2021-01-18 06:35 | NUR ---
I have reviewed and agree with all interventions, assessments performed and documented by BRUNO Perez.
--- NOTE | 2021-01-18 06:51 | NUR ---
Problems reprioritized. Patient report given, questions answered & plan of care reviewed with Tamica CARR.
[2021-01-18 07:00] VITALS: BP 92/39
--- NOTE | 2021-01-18 07:00 | NUR ---
Patient in room [facility] 345. I have received report from BRUNO Solano and had the opportunity to ask questions and assume patient care.
[2021-01-18 07:20] VITALS: BP 105/55
[2021-01-18] MEDS: pantoprazole 40mg Tablet.DR PO SCH (07:43)
[2021-01-18] MEDS: heparin, porcine 5000 units/ml vial SQ SCH ×2 (07:43→21:04)
[2021-01-18] MEDS: LIPASE/PROTEASE/AMYLASE 4,200 unit CAPSULE.DR PO SCH ×3 (07:48→21:00)
[2021-01-18 09:50] LABS: LARGE PLATELETS FEW; PLATELET ESTIMATE NORMAL
[2021-01-18 11:00] VITALS: BP 111/53
--- NOTE | 2021-01-18 11:26 | NUR ---
Reassessment: Pt continues refusing clear liquid diet. Pt with c/o nausea and abdominal pain, receiving PRN antiemetic and pain relievers. Pt continues receiving nocturnal TPN and tolerating with no s/s refeeding syndrome. LB 01/17. No changes to nutrition intervention recommendations at this time. Will continue to follow. Recommendations: 1) Custom Cyclic TPN to run 6056-4502 per DO using 850ml 10% AA and 410ml D70. Separate 200ml 20% intralipids to run for 12 hours daily at 16.67ml/hr. Initiate at 30ml/hr for first 2 hours then advance to goal rate 142.5ml/hr for 8 hours followed by return to 30ml/hr for final 2 hours of infusion each day. To provide 1460mL total volume, 85g AA, 287g dextrose (7.38mg/kg/min dext load), 40g lipids, and 1716 total kcals 2) Prealbumin and TG q Friday/; daily wts 3) monitor for signs of refeeding and PN tolerance 4) Continue clear liquid diet; advance as medically indicated to low fat 5) Continue Pancreaze with PO diet 6) IF prolonged poor PO intolerance w/ chronic pancreatitis consider EN via Jejunum to meet long-term nutrition needs Addendum: 01/18/21 at [address] Amended: Links added.
--- NOTE | 2021-01-18 18:48 | NUR ---
Problems reprioritized. Patient report given, questions answered & plan of care reviewed with Maria Dolores RN.
[2021-01-18 19:30] VITALS: BP 111/65
[2021-01-18] MEDS: fat emulsion IV bag 250 ML IV SCH (20:00)
[2021-01-18] MEDS ORDERED: fat emulsion 20% inj. 100 ML IV SCH (20:00)
[2021-01-18] MEDS: MAGNESIUM IV SCH ×9 (20:01)
[2021-01-18] MEDS: SODIUM CL IV SCH ×9 (20:01)
[2021-01-18] MEDS: POTASSIUM CL IV SCH ×9 (20:01)
[2021-01-18] MEDS: [UNRECOGNIZED DRUG - OTHER] IV SCH ×9 (20:01)
[2021-01-18] MEDS: CALCIUM GLUCONATE IV SCH ×9 (20:01)
[2021-01-18] MEDS: estradiol 1mg tablet PO SCH (21:01)
[2021-01-18] MEDS: duloxetine 20mg capsule.DR PO SCH (21:02)
[2021-01-18] MEDS: zolpidem 5mg tablet PO SCH (22:16)
[2021-01-18 23:30] VITALS: BP 113/39
[2021-01-19] MEDS: HYDROmorphone 1 mg/ml syringe IV PRN ×5 (00:09→08:51)
[2021-01-19] MEDS: oxyCODONE IR 5mg (immed. release) tablet PO SCH ×4 (03:00→20:48)
[2021-01-19 07:00] VITALS: BP 91/47
[2021-01-19 07:25] LABS: BASOPHILS % (AUTO) 0.6 % (0-1); EOSINOPHILS # (AUTO) 0.1 X10'3 (0-0.9); EOSINOPHILS % (AUTO) 1.9 % (0-6); HEMATOCRIT 36.3 % (35.0-45.0); HEMOGLOBIN 12.2 g/dl (12.0-16.0); LYMPHOCYTES # (AUTO) 2.2 X10'3 (1.1-4.8); MEAN CORPUSCULAR HEMOGLOBIN 30.4 PG (27.0-31.0); MEAN CORPUSCULAR HGB CONC 33.7 g/dL (33.0-36.5); MEAN PLATELET VOLUME 10.5 FL (7.4-10.4); MONOCYTES # (AUTO) 0.6 X10'3 (0-0.9); MONOCYTES % (AUTO) 10.1 % (2-12); NEUTROPHILS % (AUTO) 50.4 % (42-75); PLATELET COUNT 170 X10'3 (140-440); RED BLOOD COUNT 4.03 X10'6 (4.20-5.60); RED CELL DISTRIBUTION WIDTH 13.2 % (11.5-14.5); WHITE BLOOD COUNT 6.1 X10'3 (4.5-11.0)
[2021-01-19 07:39] LABS: ALANINE AMINOTRANSFERASE 30 U/L (12-78); ALBUMIN 3.1 G/DL (3.4-5.0); ALBUMIN/GLOBULIN RATIO 1.1 (1.1-1.5); ALKALINE PHOSPHATASE 89 IU/L (46-116); ANION GAP 5 (8-16); ASPARTATE AMINO TRANSFERASE 11 U/L (10-37); BILIRUBIN,TOTAL 0.5 MG/DL (0.1-1.0); BLOOD UREA NITROGEN 18 MG/DL (7-18); CALCIUM 8.6 MG/DL (8.5-10.1); CHLORIDE 109 MMOL/L (99-107); CREATININE 0.53 MG/DL (0.40-0.90); GLUCOSE 51 MG/DL (70-104); POTASSIUM 4.3 MMOL/L (3.5-5.1); SODIUM 141 MMOL/L (135-145); TOTAL CARBON DIOXIDE 27.3 MMOL/L (24-32); eGFR > 90 ML/MIN
[2021-01-19 07:56] LABS: LARGE PLATELETS FEW; PLATELET ESTIMATE NORMAL
[2021-01-19] MEDS: LIPASE/PROTEASE/AMYLASE 4,200 unit CAPSULE.DR PO SCH ×3 (08:00→21:00)
[2021-01-19] MEDS: heparin, porcine 5000 units/ml vial SQ SCH ×2 (08:57→20:59)
[2021-01-19] MEDS: pantoprazole 40mg Tablet.DR PO SCH (08:57)
[2021-01-19] MEDS: HYDROmorphone inj. 0.5 MG/0.5 ML DISP.SYRIN IV PRN ×6 (11:37→23:20)
[2021-01-19 18:00] VITALS: BP 105/58
--- NOTE | 2021-01-19 18:31 | NUR ---
Patient in room [facility] 345. I have received report from BRUNO Davey and had the opportunity to ask questions and assume patient care.
--- NOTE | 2021-01-19 18:32 | NUR ---
Problems reprioritized. Patient report given, questions answered & plan of care reviewed with BRUNO Josue.
[2021-01-19] MEDS ORDERED: POTASSIUM CL IV SCH ×8 (20:00)
[2021-01-19] MEDS ORDERED: [UNRECOGNIZED DRUG - OTHER] IV SCH ×8 (20:00)
[2021-01-19] MEDS ORDERED: MAGNESIUM IV SCH ×8 (20:00)
[2021-01-19] MEDS ORDERED: CALCIUM GLUCONATE IV SCH ×8 (20:00)
[2021-01-19] MEDS ORDERED: SODIUM CL IV SCH ×8 (20:00)
[2021-01-19] MEDS: fat emulsion IV bag 250 ML IV SCH (20:49)
[2021-01-19] MEDS: duloxetine 20mg capsule.DR PO SCH (20:58)
[2021-01-19] MEDS: estradiol 1mg tablet PO SCH (21:05)
[2021-01-19] MEDS: zolpidem 5mg tablet PO SCH (22:12)
[2021-01-20] VITALS: BP 120/64
[2021-01-20] MEDS: oxyCODONE IR 5mg (immed. release) tablet PO SCH ×2 (01:31→07:40)
[2021-01-20] MEDS: HYDROmorphone inj. 0.5 MG/0.5 ML DISP.SYRIN IV PRN ×4 (01:32→08:37)
[2021-01-20 07:00] VITALS: BP 93/51
[2021-01-20 07:15] LABS: BASOPHILS % (AUTO) 0.7 % (0-1); EOSINOPHILS # (AUTO) 0.2 X10'3 (0-0.9); EOSINOPHILS % (AUTO) 3.3 % (0-6); HEMATOCRIT 37.4 % (35.0-45.0); HEMOGLOBIN 12.7 g/dl (12.0-16.0); LYMPHOCYTES # (AUTO) 2.4 X10'3 (1.1-4.8); LYMPHOCYTES % (AUTO) 41.1 % (21-51); MEAN CORPUSCULAR HEMOGLOBIN 30.4 PG (27.0-31.0); MEAN CORPUSCULAR HGB CONC 33.9 g/dL (33.0-36.5); MEAN CORPUSCULAR VOLUME 89.7 FL (78-98); MEAN PLATELET VOLUME 10.6 FL (7.4-10.4); MONOCYTES # (AUTO) 0.6 X10'3 (0-0.9); MONOCYTES % (AUTO) 9.8 % (2-12); NEUTROPHILS # (AUTO) 2.7 X10'3 (1.8-7.7); NEUTROPHILS % (AUTO) 45.1 % (42-75); PLATELET COUNT 177 X10'3 (140-440); RED BLOOD COUNT 4.17 X10'6 (4.20-5.60); RED CELL DISTRIBUTION WIDTH 13.3 % (11.5-14.5)
[2021-01-20 07:25] LABS: ALANINE AMINOTRANSFERASE 33 U/L (12-78); ALBUMIN 3.2 G/DL (3.4-5.0); ALBUMIN/GLOBULIN RATIO 1.1 (1.1-1.5); ALKALINE PHOSPHATASE 91 IU/L (46-116); ANION GAP 7 (8-16); ASPARTATE AMINO TRANSFERASE 20 U/L (10-37); BILIRUBIN,TOTAL 0.4 MG/DL (0.1-1.0); BLOOD UREA NITROGEN 10 MG/DL (7-18); BUN/CREATININE RATIO 17.9 (6.6-38.0); CALCIUM 8.7 MG/DL (8.5-10.1); CHLORIDE 107 MMOL/L (99-107); CREATININE 0.56 MG/DL (0.40-0.90); GLUCOSE 97 MG/DL (70-104); MAGNESIUM 1.9 MG/DL (1.5-2.4); PHOSPHORUS 3.5 MG/DL (2.3-4.5); POTASSIUM 3.8 MMOL/L (3.5-5.1); SODIUM 141 MMOL/L (135-145); TOTAL CARBON DIOXIDE 27.5 MMOL/L (24-32); TOTAL PROTEIN 6.2 G/DL (6.4-8.2); eGFR > 90 ML/MIN
[2021-01-20] MEDS: pantoprazole 40mg Tablet.DR PO SCH (07:40)
[2021-01-20] MEDS: heparin, porcine 5000 units/ml vial SQ SCH (07:44)
[2021-01-20] MEDS: LIPASE/PROTEASE/AMYLASE 4,200 unit CAPSULE.DR PO SCH (07:45)
[2021-01-20] MEDS ORDERED: MVI, adult No.4 with vit. K 10 ML in dextrose 5% water 500ml 500 ML IV SCH ×2 (10:00)
[2021-01-20 11:00] VITALS: BP 106/61
--- NOTE | 2021-01-20 11:25 | NUR ---
Dr Pepper stated the pt has been discharged, and upon discussion she said if pt experiences Dilaudid withdraw symptoms she can return to the ER, but no pain meds will be sent home w/ pt. Pt c/o to primary RN, Latonia, that she has not been "tapered off" her dilaudid before discharge and she wanted a different MD before leaving. Nursing script supervisor, Michelle, was notified. Chart was reviewed for Dilaudid admin, which showed pt has been tapered to 0.5mg Dilaudid q2h for past 24h. Michelle Lincoln, and this Charge Nurse met w/ pt in her room. Pt was dressed in street clothes. Pt verbalized dissatisfaction w/ medical care due to lack of further weaning down of Dilaudid prior to being discharged, but agreed to d/c'g home. She stated she lives in [place] and won't have ride back to hospital if needed, however her visitor at bedside stated he would be able to bring her back if needed, but "that's what we're trying to avoid". Meds stored in pharmacy were delivered to her bedside by this nurse, and pt then stated she would not have any TPN delivered until Monday 01/22, and she had none at home as TPN is only viable x1week. BRUNO Lincoln, and MILAGROS Nunez were made aware. Pt was asked if she would prefer to stay until CM could inquire of an early delivery day/time, but she refused. Mayra stated pt already has On-Call numbers for TPN delivery/issues and can f/u herself if she needs to.
--- NOTE | 2021-01-20 11:27 | NUR ---
Pt discharged per Dr Pepper orders. When patient was told she was medically stable and no surgical intervention needed per Dr Melton she became defensive and verbally attacking to Dr Pepper. Dr Pepper re-iterated discharge and that labs were good, no intervention needed. Patient was again verbally agressive with Dr Pepper (who was being very appropriate all through patients rant) and told me to "get her out of here". Patient is well known to me from previous visits spanning to at 2-3 years ago and shows increasing manipulative behaviors through the years. She requested dilaudid for home "to wean". Patient says she is worried about withdrawal, to this Dr Pepper told her that if there is any case of withdrawal then she can be seen in the ER. Patient is known to requests high amounts of pain medications often and per shift manager when she realized she had been weaned to 0.5mg dilaudid was unhappy with this and wanted more. Patient had 1 dose this am of 0.5mg dilaudid with me prior to discharge and one 0.5mg prior to shift change in AM. When wanting to talk to someone other than Dr Pepper about her concern of not being discharged with optiates I spoke with Sophia CARR charge and Michelle CARR nursing shore working supervisor who came into room and re-iterated to patient that the orders were final by Dr Pepper and there will not be any narcotics given for discharge, and to continue with home medication for pain and follow up with [facility] and pain management Patient signed discharge orders, upset at situation. Says her TPN at home could be a problem but she will leave anyways. Kathy CARR case mgt aware of her and says if TPN is an issue she is already set up and can call the personal property assessor number. PICC line was not from our facility. Pt came in with it for home TPN and it was not taken out due to continued need for it. Pt will f/u with outside provider for TPN. Medication given back from pharmacy with exact numbers that went to pharmacy and were verified by pharmacist and initial RN who sent meds to pharmacy and Sophia CARR who retrieved medications for her. Patient stated that the medication was filled to the middle and now it is less but "whatever" she says and moved on to different topic after putting it into her bag. Patient wheeled down to ride who was waiting for her and will be driving.
--- NOTE | 2021-01-20 14:42 | NUR ---
Pt phoned to report she had left her cell phone gas charger in rm 345[address] and her son would be coming to pick it up. She was instructed it would be at the front end engineer in the lobby. The pt also stated she has now begun to throw up and have bloody stool, "That is why I was in there and Dr Pepper needs to be told!". I encouraged her that she should return to the ER if condition worsens or she feels she needs medical care. She stated that when she goes to an ER it will not be at [facility], but at a different hospital. Phone gas charger was located, placed in plastic bag, labeled and delivered to the front end engineer in the lobby with Cristopher ansari, for her son to cotton picker operator.
== END 2021-01-20 11:20 | disposition home health service (06) | DRG 440 ==
LOC: ER 21:05 → ED HOLD 01-15 02:36 → SUR 3N 01-15 04:19
PROVIDERS: ADMIT Internal Medicine; ATTEND Family Medicine
PROC: BW211ZZ Computerized Tomography (CT Scan) of Abdomen and Pelvis using Low Osmolar Contrast (ICD-10-PCS; principal; 2021-01-14)
PROC: BW201ZZ Computerized Tomography (CT Scan) of Abdomen using Low Osmolar Contrast (ICD-10-PCS; 2021-01-17)
DX: K85.90 Acute pancreatitis without necrosis or infection, unspecified (principal); F32.9 Major depressive disorder, single episode, unspecified; G89.4 Chronic pain syndrome; K86.1 Other chronic pancreatitis; F41.9 Anxiety disorder, unspecified; F17.200 Nicotine dependence, unspecified, uncomplicated; Z76.5 Malingerer [conscious simulation]; Z82.0 Family history of epilepsy and other diseases of the nervous system; Z83.3 Family history of diabetes mellitus; Z90.411 Acquired partial absence of pancreas; Z90.49 Acquired absence of other specified parts of digestive tract; Z90.710 Acquired absence of both cervix and uterus; Z88.8 Allergy status to other drugs, medicaments and biological substances; Z79.899 Other long term (current) drug therapy; Z91.030 Bee allergy status; Z82.49 Family history of ischemic heart disease and other diseases of the circulatory system
CPT/HCPCS: 36415; 74170; 74177; 80053; 82948; 83690; 83735; 84100; 84134; 84478; 84703; 85008; 85025; 87081; 96361; 96374; 96375; 96376; 99285; G0378; J0610; J1170; J1644; J2270; J2405; J3475; J3480; J7030; J7131; Q9963; Q9967

== ENCOUNTER 2023-01-24 18:01 | Emergency (ER) | payer BC ==
[~2023-01-24] VITALS: Ht 177.8 cm; Wt 60.0 kg
[~2023-01-24 18:01] MED LIST changes: +BUPR8TAB4 SL; +ERGO500041 PO; -SUCR1TAB34 PO
[2023-01-24 18:52] LABS: BASOPHILS % (AUTO) 0.4 % (0-1); EOSINOPHILS % (AUTO) 0.3 % (0-6); HEMATOCRIT 42.1 % (35.0-45.0); HEMOGLOBIN 14.3 g/dl (12.0-16.0); LYMPHOCYTES # (AUTO) 1.6 X10'3 (1.1-4.8); LYMPHOCYTES % (AUTO) 23.7 % (21-51); MEAN CORPUSCULAR HEMOGLOBIN 29.6 PG (27.0-31.0); MEAN CORPUSCULAR HGB CONC 33.9 g/dL (33.0-36.5); MEAN CORPUSCULAR VOLUME 87.3 FL (78-98); MONOCYTES # (AUTO) 0.2 X10'3 (0-0.9); MONOCYTES % (AUTO) 3.4 % (2-12); NEUTROPHILS % (AUTO) 72.2 % (42-75); PLATELET COUNT 248 X10'3 (140-440); RED BLOOD COUNT 4.83 X10'6 (4.20-5.60); RED CELL DISTRIBUTION WIDTH 13.7 % (11.5-14.5); WHITE BLOOD COUNT 6.9 X10'3 (4.5-11.0)
[2023-01-24 19:03] LABS: ALANINE AMINOTRANSFERASE 35 U/L (12-78); ALBUMIN 4.1 G/DL (3.4-5.0); ALBUMIN/GLOBULIN RATIO 1.2 (1.1-1.5); ALKALINE PHOSPHATASE 81 IU/L (46-116); ANION GAP 12 (8-16); ASPARTATE AMINO TRANSFERASE 23 U/L (10-37); BILIRUBIN,TOTAL 0.5 MG/DL (0.1-1.0); BLOOD UREA NITROGEN 18 MG/DL (7-18); BUN/CREATININE RATIO 22.2 (10.0-20.0); CALCIUM 8.9 MG/DL (8.5-10.1); CHLORIDE 103 MMOL/L (99-107); CREATININE 0.81 MG/DL (0.40-0.90); GLUCOSE 117 MG/DL (70-104); LIPASE < 50 U/L (73-393); POTASSIUM 3.7 MMOL/L (3.5-5.1); SODIUM 139 MMOL/L (135-145); TOTAL CARBON DIOXIDE 24.5 MMOL/L (24-32); TOTAL PROTEIN 7.5 G/DL (6.4-8.2); eGFR 75 ML/MIN
--- NOTE | 2023-01-24 20:43 | NUR ---
Pt states she is unable to provide urine sample at this time.
[2023-01-24 21:20] LABS: URINE HCG NEGATIVE (NEG)
[2023-01-24 21:52] LABS: CLARITY,URINE SLIGHTLY CLOUDY (Clear); COLOR,URINE YELLOW (Yellow); GLUCOSE, URINE NEGATIVE (Neg); KETONES,URINE TRACE mg/dl (Neg); LEUKOCYTE ESTERASE ,URINE NEGATIVE (Neg); NITRITES, URINE NEGATIVE (Neg); OCCULT BLOOD,URINE NEGATIVE (Neg); PH,URINE 5.5 (4.8-8.0); PROTEIN,URINE TRACE mg/dl (Neg); UROBILINOGEN,URINE 0.2 E.U/dL (0.2-1.0)
[2023-01-24 21:53] LABS: UA COLLECTION TYPE CLN CATCH MIDSTREAM
[2023-01-24 22:06] LABS: BACTERIA,URINE 1+ /HPF (Neg); MUCUS STRANDS MANY /LPF (Neg); RBC,URINE NONE SEEN /HPF (0-2); SQUAMOUS EPITHELIAL CELL,UR MANY /LPF (FEW); WBC,URINE 0-4 /HPF (0-4)
--- NOTE | 2023-01-24 22:25 | NUR ---
Pt moved from ER fast track to ER rm 6.
[2023-01-24] MEDS ORDERED: ondansetron 4mg rapidly disintigrating tab PO ONE (22:40)
[2023-01-24] MEDS ORDERED: morphine 4 MG/ML inj SYRINge IM ONE (22:40)
--- NOTE | 2023-01-24 23:09 | NUR ---
PER DR DEGROOT, PT IS TO BE ADMITTED. HOSPITAL BED REQUESTED
--- NOTE | 2023-01-25 00:04 | NUR ---
PER DR ZANE LOPEZ TO USE PTS PICC LINE
[2023-01-25] MEDS ORDERED: morphine 4 MG/ML inj SYRINge IV ONE (00:05)
[2023-01-25] MEDS ORDERED: morphine 4 MG/ML inj SYRINge IV STA (01:58)
[2023-01-25] MEDS ORDERED: ONDA4TAB12 PO (02:06)
[2023-01-25] MEDS ORDERED: [UNRECOGNIZED DRUG - CODE] PO (02:06)
[2023-01-25 05:33] LABS: URINE AMPHETAMINE SCREEN NEGATIVE (Neg); URINE BARBITUATE SCREEN NEGATIVE (Neg); URINE BENZODIAZEPINES SCREEN NEGATIVE (Neg); URINE CANNABINOID SCREEN POSITIVE (Neg); URINE COCAINE SCREEN NEGATIVE (Neg); URINE METHADONE SCREEN NEGATIVE (Neg); URINE OPIATE SCREEN NEGATIVE (Neg); URINE PHENCYCLIDINE SCREEN NEGATIVE (Neg)
[2023-01-25 06:03] VITALS: BP 116/66
== END 2023-01-25 06:05 | disposition home or self-care (01) ==
LOC: ER 18:02
DX: R19.7 Diarrhea, unspecified (principal); G89.29 Other chronic pain; R10.84 Generalized abdominal pain; F17.200 Nicotine dependence, unspecified, uncomplicated; Z88.6 Allergy status to analgesic agent; Z88.8 Allergy status to other drugs, medicaments and biological substances; Z91.013 Allergy to seafood; Z91.030 Bee allergy status; Z90.49 Acquired absence of other specified parts of digestive tract; Z90.710 Acquired absence of both cervix and uterus
CPT/HCPCS: 36415; 71045; 74176; 80053; 80305; 81001; 81025; 82948; 83690; 85025; 96372; 96374; 96376; 99285; J2270

== ENCOUNTER 2023-10-24 12:45 | Inpatient (IN) | payer BC, MEDICAID ==
[~2023-10-24] VITALS: Ht 177.8 cm; Wt 61.9 kg
[~2023-10-24 12:45] MED LIST changes: +ONDA4TAB12 PO; +[UNRECOGNIZED DRUG - CODE] PO
[2023-10-24 14:32] LABS: BASOPHILS % (AUTO) 0.3 % (0-1); EOSINOPHILS % (AUTO) 0.2 % (0-6); HEMATOCRIT 43.2 % (35.0-45.0); HEMOGLOBIN 14.6 g/dl (12.0-16.0); LYMPHOCYTES # (AUTO) 1.2 X10'3 (1.1-4.8); LYMPHOCYTES % (AUTO) 18.3 % (21-51); MEAN CORPUSCULAR HEMOGLOBIN 29.7 PG (27.0-31.0); MEAN CORPUSCULAR HGB CONC 33.8 g/dL (33.0-36.5); MEAN PLATELET VOLUME 9.6 FL (7.4-10.4); MONOCYTES # (AUTO) 0.2 X10'3 (0-0.9); MONOCYTES % (AUTO) 3.4 % (2-12); NEUTROPHILS # (AUTO) 5.2 X10'3 (1.8-7.7); NEUTROPHILS % (AUTO) 77.8 % (42-75); PLATELET COUNT 233 X10'3 (140-440); RED BLOOD COUNT 4.91 X10'6 (4.20-5.60); RED CELL DISTRIBUTION WIDTH 13.8 % (11.5-14.5); WHITE BLOOD COUNT 6.7 X10'3 (4.5-11.0)
[2023-10-24 14:54] LABS: ALANINE AMINOTRANSFERASE 26 U/L (12-78); ALBUMIN/GLOBULIN RATIO 1.1 (1.1-1.5); ALKALINE PHOSPHATASE 89 IU/L (46-116); AMYLASE 71 U/L (25-115); ANION GAP 15 (8-16); ASPARTATE AMINO TRANSFERASE 16 U/L (10-37); BILIRUBIN,DIRECT 0.1 MG/DL (0-0.3); BILIRUBIN,TOTAL 0.7 MG/DL (0.1-1.0); BLOOD UREA NITROGEN 14 MG/DL (7-18); BUN/CREATININE RATIO 16.9 (10.0-20.0); CALCIUM 9.6 MG/DL (8.5-10.1); CHLORIDE 104 MMOL/L (99-107); CREATININE 0.83 MG/DL (0.40-0.90); GLUCOSE 98 MG/DL (70-104); LIPASE 12 U/L (16-77); MAGNESIUM 2.1 MG/DL (1.5-2.4); POTASSIUM 4.3 MMOL/L (3.5-5.1); SODIUM 141 MMOL/L (135-145); TOTAL CARBON DIOXIDE 21.9 MMOL/L (24-32); TOTAL PROTEIN 7.5 G/DL (6.4-8.2); eCRCL 72 ML/MIN; eGFR 72 ML/MIN
[2023-10-24] MEDS ORDERED: iohexol 300mg/ml 100ml inj. ONE (16:33)
[2023-10-24] MEDS: normal saline 1000ml 1,000 ML IV ONE (18:07)
[2023-10-24] MEDS: ondansetron/PF 4mg/2ml inj IV ONE (18:22)
[2023-10-24] MEDS: morphine 4 MG/ML inj SYRINge IV ONE ×2 (18:22→19:26)
[2023-10-24] MEDS ORDERED: magnesium hydroxide 30ml (MOM) UD suspension PO PRN (20:25)
[2023-10-24] MEDS ORDERED: Neutra Phos packet PO PRN (20:25)
[2023-10-24] MEDS ORDERED: magnesium 2GM in 50ml NS 50 ML IV PRN (20:25)
[2023-10-24] MEDS ORDERED: acetaminophen 325mg tablet PO PRN (20:25)
[2023-10-24] MEDS ORDERED: mag hydrox/Alum hydrox/simeth 30ml oral suspension PO PRN (20:25)
[2023-10-24] MEDS ORDERED: magnesium Cl slow-release 64mg tablet PO PRN (20:25)
[2023-10-24] MEDS ORDERED: potassium Cl 20 mEq SR tablet PO PRN ×2 (20:25)
[2023-10-24] MEDS ORDERED: sodium phosphate inj. 30 MMOL in dextrose 5%-water 250 ML IV PRN (20:25)
[2023-10-24] MEDS ORDERED: magnesium 4gm in 100ml NS 100 ML IV PRN (20:25)
[2023-10-24] MEDS ORDERED: sodium phosphate inj. 15 MMOL in dextrose 5%-water 250 ML IV PRN (20:25)
[2023-10-24] MEDS ORDERED: thiamine inj. 100 MG in normal saline 100ml IV soln 99 ML IV ONE (20:40)
[2023-10-24] MEDS: normal saline 1000ml 1,000 ML IV SCH (21:07)
[2023-10-24] MEDS: thiamine 100mg/ml 2ml inj. IV ONE (21:21)
[2023-10-24] MEDS: HYDROmorphone/PF 0.2 MG/ML SYRINGE IV PRN (21:21)
[2023-10-24 21:59] LABS: BILIRUBIN,URINE NEGATIVE (Neg); CLARITY,URINE CLEAR (Clear); GLUCOSE, URINE NEGATIVE (Neg); KETONES,URINE 15 mg/dl (Neg); LEUKOCYTE ESTERASE ,URINE NEGATIVE (Neg); NITRITES, URINE NEGATIVE (Neg); OCCULT BLOOD,URINE NEGATIVE (Neg); PROTEIN,URINE NEGATIVE (Neg); UROBILINOGEN,URINE 0.2 E.U/dL (0.2-1.0)
[2023-10-24 22:05] LABS: COLOR,URINE DARK YELLOW (Yellow); UA COLLECTION TYPE CLN CATCH MIDSTREAM
[2023-10-24 23:00] VITALS: BP 104/48; PULSE 83; RESP 12; TEMP 97; O2SAT 96
[2023-10-24 23:30] VITALS: RESP 16; O2SAT 98
[2023-10-25] VITALS (10 sets, daily range): BP systolic 97–120; BP diastolic 41–64; PULSE 61–82; RESP 11–16; TEMP 97.3–98.2; O2SAT 96–100
[2023-10-25] MEDS: HYDROmorphone inj. 0.5 MG/0.5 ML DISP.SYRIN IV PRN (05:46)
[2023-10-25 07:05] LABS: MAGNESIUM 1.6 MG/DL (1.5-2.4); PHOSPHORUS 3.5 MG/DL (2.3-4.5)
[2023-10-25] MEDS: K and/or MAG REPLACEMENT MC SCH (08:00)
[2023-10-25] MEDS: docusate sod 100mg capsule PO SCH (08:00)
[2023-10-25] MEDS: enoxaparin 40mg/0.4ml syringe SQ SCH (08:39)
[2023-10-25 10:21] LABS: BASOPHILS % (AUTO) 0.6 % (0-1); EOSINOPHILS % (AUTO) 0.6 % (0-6); HEMATOCRIT 34.3 % (35.0-45.0); HEMOGLOBIN 11.8 g/dl (12.0-16.0); LYMPHOCYTES # (AUTO) 0.6 X10'3 (1.1-4.8); LYMPHOCYTES % (AUTO) 7.5 % (21-51); MEAN CORPUSCULAR HEMOGLOBIN 30.3 PG (27.0-31.0); MEAN CORPUSCULAR HGB CONC 34.5 g/dL (33.0-36.5); MEAN CORPUSCULAR VOLUME 87.8 FL (78-98); MEAN PLATELET VOLUME 9.5 FL (7.4-10.4); MONOCYTES # (AUTO) 0.3 X10'3 (0-0.9); MONOCYTES % (AUTO) 4.6 % (2-12); NEUTROPHILS # (AUTO) 6.5 X10'3 (1.8-7.7); NEUTROPHILS % (AUTO) 86.7 % (42-75); PLATELET COUNT 146 X10'3 (140-440); RED CELL DISTRIBUTION WIDTH 13.6 % (11.5-14.5); WHITE BLOOD COUNT 7.5 X10'3 (4.5-11.0)
[2023-10-25 10:32] LABS: ALANINE AMINOTRANSFERASE 23 U/L (12-78); ALBUMIN 3.1 G/DL (3.4-5.0); ALBUMIN/GLOBULIN RATIO 1.1 (1.1-1.5); ALKALINE PHOSPHATASE 70 IU/L (46-116); ANION GAP 12 (8-16); ASPARTATE AMINO TRANSFERASE 20 U/L (10-37); BLOOD UREA NITROGEN 11 MG/DL (7-18); BUN/CREATININE RATIO 16.2 (10.0-20.0); CHLORIDE 106 MMOL/L (99-107); CREATININE 0.68 MG/DL (0.40-0.90); GLUCOSE 77 MG/DL (70-104); SODIUM 139 MMOL/L (135-145); TOTAL CARBON DIOXIDE 20.8 MMOL/L (24-32); eCRCL 88 ML/MIN; eGFR > 90 ML/MIN
[2023-10-25] MEDS ORDERED: DEXTROSE 15 GM of carb/4 tabs (each vial/BOTTLE has 4 tablets) PO PRN ×2 (14:20)
[2023-10-25] MEDS ORDERED: glucagon, human recombinant 1mg kit SUBCUT PRN (14:20)
[2023-10-25] MEDS ORDERED: dextrose 50%-water 50ml dispensing syringe IV PRN ×2 (14:20)
[2023-10-25] MEDS ORDERED: insulin Lispro (HumaLOG) vial - multi-dose SQ SCH (14:20)
[2023-10-25] MEDS: dextrose 50%-water 50ml dispensing syringe IV ONE (14:29)
[2023-10-25] MEDS: ondansetron/PF 4mg/2ml inj IV PRN (14:33)
[2023-10-25] MEDS: HYDROmorphone 1 mg/ml syringe IV PRN (14:35)
[2023-10-25] MEDS: dextrose 5%-normal saline 1,000 ML IV SCH (14:55)
[2023-10-25] MEDS: insulin glargine (Lantus) pen - multi-dose SQ SCH (20:26)
[2023-10-26] VITALS (7 sets, daily range): BP systolic 101–131; BP diastolic 55–67; PULSE 50–70; RESP 16–19; TEMP 97.2–98.8; O2SAT 97–100
[2023-10-26 07:45] LABS: MAGNESIUM 1.7 MG/DL (1.5-2.4); POTASSIUM 3.4 MMOL/L (3.5-5.1)
[2023-10-26 09:32] LABS: BASOPHILS % (AUTO) 0.5 % (0-1); EOSINOPHILS # (AUTO) 0.1 X10'3 (0-0.9); EOSINOPHILS % (AUTO) 0.7 % (0-6); HEMATOCRIT 35.8 % (35.0-45.0); HEMOGLOBIN 12.1 g/dl (12.0-16.0); LYMPHOCYTES # (AUTO) 1.5 X10'3 (1.1-4.8); LYMPHOCYTES % (AUTO) 20.9 % (21-51); MEAN CORPUSCULAR HEMOGLOBIN 29.9 PG (27.0-31.0); MEAN PLATELET VOLUME 9.7 FL (7.4-10.4); MONOCYTES # (AUTO) 0.6 X10'3 (0-0.9); NEUTROPHILS # (AUTO) 4.9 X10'3 (1.8-7.7); NEUTROPHILS % (AUTO) 69.9 % (42-75); PLATELET COUNT 151 X10'3 (140-440); RED BLOOD COUNT 4.06 X10'6 (4.20-5.60); RED CELL DISTRIBUTION WIDTH 13.5 % (11.5-14.5)
[2023-10-26] MEDS: potassium Cl 40MEQ/1/2NS 520ml 520 ML IV PRN (10:01)
[2023-10-26 10:04] LABS: ALANINE AMINOTRANSFERASE 28 U/L (12-78); ALKALINE PHOSPHATASE 66 IU/L (46-116); ANION GAP 11 (8-16); ASPARTATE AMINO TRANSFERASE 20 U/L (10-37); BILIRUBIN,TOTAL 0.6 MG/DL (0.1-1.0); BLOOD UREA NITROGEN 11 MG/DL (7-18); BUN/CREATININE RATIO 15.5 (10.0-20.0); CALCIUM 8.1 MG/DL (8.5-10.1); CHLORIDE 109 MMOL/L (99-107); CREATININE 0.71 MG/DL (0.40-0.90); GLUCOSE 122 MG/DL (70-104); SODIUM 141 MMOL/L (135-145); TOTAL CARBON DIOXIDE 21.5 MMOL/L (24-32); TOTAL PROTEIN 5.9 G/DL (6.4-8.2); eCRCL 88 ML/MIN; eGFR 86 ML/MIN
[2023-10-26] MEDS: diatr meglu/diatrizoate 30ml oral sol.-(3 dose) bottle PO SCH (23:32)
[2023-10-27] VITALS (7 sets, daily range): BP systolic 109–121; BP diastolic 52–70; PULSE 45–58; RESP 15–18; TEMP 97.3–98.9; O2SAT 95–98
[2023-10-27 07:15] LABS: BASOPHILS % (AUTO) 0.6 % (0-1); HEMATOCRIT 33.1 % (35.0-45.0); HEMOGLOBIN 11.7 g/dl (12.0-16.0); LYMPHOCYTES # (AUTO) 1.1 X10'3 (1.1-4.8); LYMPHOCYTES % (AUTO) 21.7 % (21-51); MEAN CORPUSCULAR HEMOGLOBIN 30.8 PG (27.0-31.0); MEAN CORPUSCULAR HGB CONC 35.2 g/dL (33.0-36.5); MEAN CORPUSCULAR VOLUME 87.4 FL (78-98); MEAN PLATELET VOLUME 9.5 FL (7.4-10.4); MONOCYTES # (AUTO) 0.4 X10'3 (0-0.9); MONOCYTES % (AUTO) 7.3 % (2-12); NEUTROPHILS # (AUTO) 3.5 X10'3 (1.8-7.7); NEUTROPHILS % (AUTO) 69.4 % (42-75); PLATELET COUNT 135 X10'3 (140-440); RED BLOOD COUNT 3.79 X10'6 (4.20-5.60); RED CELL DISTRIBUTION WIDTH 13.8 % (11.5-14.5); WHITE BLOOD COUNT 5.1 X10'3 (4.5-11.0)
[2023-10-27 07:41] LABS: ALANINE AMINOTRANSFERASE 22 U/L (12-78); ALBUMIN 2.6 G/DL (3.4-5.0); ALKALINE PHOSPHATASE 62 IU/L (46-116); ANION GAP 9 (8-16); ASPARTATE AMINO TRANSFERASE 19 U/L (10-37); BILIRUBIN,TOTAL 0.5 MG/DL (0.1-1.0); BLOOD UREA NITROGEN 6 MG/DL (7-18); CALCIUM 7.8 MG/DL (8.5-10.1); CHLORIDE 111 MMOL/L (99-107); GLUCOSE 119 MG/DL (70-104); MAGNESIUM 1.7 MG/DL (1.5-2.4); POTASSIUM 3.8 MMOL/L (3.5-5.1); SODIUM 142 MMOL/L (135-145); TOTAL PROTEIN 5.1 G/DL (6.4-8.2); eCRCL 104 ML/MIN; eGFR > 90 ML/MIN
[2023-10-27] MEDS ORDERED: tizanidine 4mg tablet PO PRN (10:25)
[2023-10-27] MEDS ORDERED: SUMAtriptan 25 MG tablet PO PRN (10:25)
[2023-10-27] MEDS: Lipase/Protease/Amylase (Creon Dr 12,000 Units Capsule) PO SCH (13:00)
[2023-10-27] MEDS ORDERED: magnesium Cl slow-release 64mg tablet PO PRN (14:35)
[2023-10-27] MEDS ORDERED: sodium phosphate inj. 30 MMOL in dextrose 5%-water 250 ML IV PRN (14:35)
[2023-10-27] MEDS ORDERED: potassium Cl 40MEQ/1/2NS 520ml 520 ML IV PRN (14:35)
[2023-10-27] MEDS ORDERED: potassium Cl 20 mEq SR tablet PO PRN ×2 (14:35)
[2023-10-27] MEDS ORDERED: magnesium 4gm in 100ml NS 100 ML IV PRN (14:35)
[2023-10-27] MEDS ORDERED: Dextrose 10%-water IV solution 1,000 ML IV PRN (14:35)
[2023-10-27] MEDS ORDERED: sodium phosphate inj. 15 MMOL in dextrose 5%-water 250 ML IV PRN (14:35)
[2023-10-27] MEDS ORDERED: magnesium 2GM in 50ml NS 50 ML IV PRN (14:35)
[2023-10-27] MEDS ORDERED: Neutra Phos packet PO PRN (14:35)
[2023-10-27] MEDS ORDERED: chromic chloride inj. 10 MCG, ZINC/COPPER/MANGANESE/SELENIUM 1 ML in AA 5%/CALCIUM/LYTE... IV SCH (14:55)
[2023-10-27] MEDS ORDERED: ZINC/COPPER/MANGANESE/SELENIUM 1 ML, chromic chloride inj. 10 MCG in AA 5%/CALCIUM/LYTE... IV SCH (15:01)
[2023-10-27] MEDS ORDERED: FAT EMULSION 20% IV SCH (15:05)
[2023-10-27] MEDS: ZINC/COPPER/MANGANESE/SELENIUM 1 ML, chromic chloride inj. 10 MCG in AA 5%/CALCIUM/LYTE... IV SCH (19:02)
[2023-10-27] MEDS: BUPRENORPHINE 8 MG SL SCH (19:20)
[2023-10-27] MEDS: K and/or MAG REPLACEMENT MC SCH (20:00)
[2023-10-27] MEDS: estradiol 1mg tablet PO SCH (21:20)
[2023-10-27] MEDS: zolpidem 5mg tablet PO SCH (21:20)
[2023-10-27] MEDS: fat emulsion 20% inj. 100 ML IV SCH (21:26)
[2023-10-27 22:25] LABS: ALBUMIN 2.5 G/DL (3.4-5.0); ALKALINE PHOSPHATASE 70 IU/L (46-116); BILIRUBIN,TOTAL 0.8 MG/DL (0.1-1.0); BLOOD UREA NITROGEN 5 MG/DL (7-18); BUN/CREATININE RATIO 9.6 (10.0-20.0); CALCIUM 6.8 MG/DL (8.5-10.1); CHLORIDE 105 MMOL/L (99-107); CREATININE 0.52 MG/DL (0.40-0.90); MAGNESIUM 1.5 MG/DL (1.5-2.4); PREALBUMIN 10.7 MG/DL (19-36); TOTAL CARBON DIOXIDE 26.8 MMOL/L (24-32); TRIGLYCERIDES 865 MG/DL (20-135); eCRCL 120 ML/MIN; eGFR > 90 ML/MIN
[2023-10-27 23:09] LABS: ALANINE AMINOTRANSFERASE 32 U/L (12-78); GLUCOSE 126 MG/DL (70-104); PHOSPHORUS 2.2 MG/DL (2.3-4.5); POTASSIUM 3.4 MMOL/L (3.5-5.1)
[2023-10-28] VITALS (8 sets, daily range): BP systolic 97–145; BP diastolic 50–85; PULSE 48–64; RESP 11–18; TEMP 97.2–98.7; O2SAT 96–98
[2023-10-28 00:22] LABS: ASPARTATE AMINO TRANSFERASE 32 U/L (10-37)
[2023-10-28 00:31] LABS: ANION GAP 6 (8-16); SODIUM 138 MMOL/L (135-145)
[2023-10-28] MEDS: potassium Cl 40MEQ/1/2NS 520ml 520 ML IV PRN (04:27)
[2023-10-28 06:22] LABS: HEMOGLOBIN 11.5 g/dl (12.0-16.0); RED BLOOD COUNT 3.77 X10'6 (4.20-5.60)
[2023-10-28 06:25] LABS: BASOPHILS % (AUTO) 0.7 % (0-1); EOSINOPHILS # (AUTO) 0.1 X10'3 (0-0.9); EOSINOPHILS % (AUTO) 1.6 % (0-6); HEMATOCRIT 32.3 % (35.0-45.0); LYMPHOCYTES # (AUTO) 1.4 X10'3 (1.1-4.8); LYMPHOCYTES % (AUTO) 28.7 % (21-51); MEAN CORPUSCULAR HEMOGLOBIN 30.5 PG (27.0-31.0); MEAN CORPUSCULAR HGB CONC 35.6 g/dL (33.0-36.5); MEAN CORPUSCULAR VOLUME 85.7 FL (78-98); MEAN PLATELET VOLUME 9.4 FL (7.4-10.4); MONOCYTES # (AUTO) 0.3 X10'3 (0-0.9); MONOCYTES % (AUTO) 6.8 % (2-12); NEUTROPHILS % (AUTO) 62.2 % (42-75); PLATELET COUNT 143 X10'3 (140-440); RED CELL DISTRIBUTION WIDTH 13.5 % (11.5-14.5); WHITE BLOOD COUNT 4.8 X10'3 (4.5-11.0)
[2023-10-28 06:36] LABS: ALANINE AMINOTRANSFERASE 35 U/L (12-78); ALBUMIN 2.5 G/DL (3.4-5.0); ALKALINE PHOSPHATASE 73 IU/L (46-116); ANION GAP 4 (8-16); ASPARTATE AMINO TRANSFERASE 29 U/L (10-37); BILIRUBIN,TOTAL 0.5 MG/DL (0.1-1.0); BLOOD UREA NITROGEN 5 MG/DL (7-18); BUN/CREATININE RATIO 8.8 (10.0-20.0); CALCIUM 7.5 MG/DL (8.5-10.1); CHLORIDE 109 MMOL/L (99-107); CREATININE 0.57 MG/DL (0.40-0.90); GLUCOSE 109 MG/DL (70-104); MAGNESIUM 1.7 MG/DL (1.5-2.4); PHOSPHORUS 2.6 MG/DL (2.3-4.5); POTASSIUM 3.7 MMOL/L (3.5-5.1); SODIUM 141 MMOL/L (135-145); TOTAL CARBON DIOXIDE 28.4 MMOL/L (24-32); TOTAL PROTEIN 5.1 G/DL (6.4-8.2); eCRCL 110 ML/MIN; eGFR > 90 ML/MIN
[2023-10-28] MEDS ORDERED: ZINC/COPPER/MANGANESE/SELENIUM 1 ML, chromic chloride inj. 10 MCG in AA 5%/CALCIUM/LYTE... IV SCH (07:46)
[2023-10-28] MEDS: MVI, adult No.4 with vit. K 10 ML in dextrose 5% water 500ml 500 ML IV SCH (09:31)
[2023-10-28] MEDS: fat emulsion 20% inj. 100 ML IV SCH (09:31)
[2023-10-28] MEDS: diatr meglu/diatrizoate 30ml oral sol.-(3 dose) bottle PO SCH (20:31)
[2023-10-28] MEDS ORDERED: diatr meglu/diatrizoate 30ml oral sol.-(3 dose) bottle PO SCH (21:00)
[2023-10-29] VITALS (9 sets, daily range): BP systolic 97–127; BP diastolic 43–63; PULSE 56–75; RESP 12–20; TEMP 97.2–98.4; O2SAT 96–98
[2023-10-29 04:32] LABS: BASOPHILS # (AUTO) 0.1 X10'3 (0-0.2); EOSINOPHILS # (AUTO) 0.1 X10'3 (0-0.9); EOSINOPHILS % (AUTO) 1.9 % (0-6); HEMATOCRIT 35.3 % (35.0-45.0); HEMOGLOBIN 12.5 g/dl (12.0-16.0); LYMPHOCYTES # (AUTO) 2.3 X10'3 (1.1-4.8); MEAN CORPUSCULAR HEMOGLOBIN 30.4 PG (27.0-31.0); MEAN CORPUSCULAR HGB CONC 35.3 g/dL (33.0-36.5); MEAN CORPUSCULAR VOLUME 86.2 FL (78-98); MEAN PLATELET VOLUME 9.8 FL (7.4-10.4); MONOCYTES # (AUTO) 0.4 X10'3 (0-0.9); NEUTROPHILS # (AUTO) 3.3 X10'3 (1.8-7.7); NEUTROPHILS % (AUTO) 53.1 % (42-75); PLATELET COUNT 156 X10'3 (140-440); RED CELL DISTRIBUTION WIDTH 13.3 % (11.5-14.5); WHITE BLOOD COUNT 6.2 X10'3 (4.5-11.0)
[2023-10-29 04:39] LABS: ALANINE AMINOTRANSFERASE 43 U/L (12-78); ALBUMIN/GLOBULIN RATIO 1.2 (1.1-1.5); ALKALINE PHOSPHATASE 83 IU/L (46-116); ANION GAP 6 (8-16); ASPARTATE AMINO TRANSFERASE 28 U/L (10-37); BILIRUBIN,TOTAL 0.6 MG/DL (0.1-1.0); BLOOD UREA NITROGEN 10 MG/DL (7-18); BUN/CREATININE RATIO 18.2 (10.0-20.0); CHLORIDE 106 MMOL/L (99-107); CREATININE 0.55 MG/DL (0.40-0.90); GLUCOSE 116 MG/DL (70-104); MAGNESIUM 1.9 MG/DL (1.5-2.4); PHOSPHORUS 3.7 MG/DL (2.3-4.5); POTASSIUM 3.8 MMOL/L (3.5-5.1); SODIUM 141 MMOL/L (135-145); TOTAL CARBON DIOXIDE 29.5 MMOL/L (24-32); TOTAL PROTEIN 5.6 G/DL (6.4-8.2); TRIGLYCERIDES 40 MG/DL (20-135); eCRCL 122 ML/MIN; eGFR > 90 ML/MIN
[2023-10-29] MEDS ORDERED: Dextrose 10%-water IV solution 1,000 ML IV PRN (12:18)
[2023-10-29] MEDS: ZINC/COPPER/MANGANESE/SELENIUM 1 ML, chromic chloride inj. 10 MCG in AA 5%/CALCIUM/LYTE... IV SCH (12:30)
[2023-10-29] MEDS: Lipase/Protease/Amylase (Creon Dr 12,000 Units Capsule) PO ONE (19:45)
[2023-10-30 02:00] VITALS: BP 94/60; PULSE 63; RESP 18; TEMP 97.8; O2SAT 95
[2023-10-30 06:00] VITALS: BP 105/60; PULSE 72; RESP 19; TEMP 97.6; O2SAT 100
[2023-10-30 08:00] VITALS: RESP 18; O2SAT 99
[2023-10-30] MEDS: Lipase/Protease/Amylase (Creon Dr 12,000 Units Capsule) PO SCH (08:00)
[2023-10-30 08:09] LABS: BASOPHILS % (AUTO) 0.7 % (0-1); EOSINOPHILS # (AUTO) 0.2 X10'3 (0-0.9); EOSINOPHILS % (AUTO) 2.5 % (0-6); HEMOGLOBIN 14.1 g/dl (12.0-16.0); LYMPHOCYTES # (AUTO) 2.4 X10'3 (1.1-4.8); MEAN CORPUSCULAR HEMOGLOBIN 29.8 PG (27.0-31.0); MEAN CORPUSCULAR HGB CONC 34.3 g/dL (33.0-36.5); MEAN CORPUSCULAR VOLUME 86.7 FL (78-98); MEAN PLATELET VOLUME 9.6 FL (7.4-10.4); MONOCYTES # (AUTO) 0.6 X10'3 (0-0.9); MONOCYTES % (AUTO) 7.7 % (2-12); NEUTROPHILS # (AUTO) 4.2 X10'3 (1.8-7.7); NEUTROPHILS % (AUTO) 57.1 % (42-75); PLATELET COUNT 216 X10'3 (140-440); RED BLOOD COUNT 4.73 X10'6 (4.20-5.60); RED CELL DISTRIBUTION WIDTH 13.5 % (11.5-14.5); WHITE BLOOD COUNT 7.4 X10'3 (4.5-11.0)
[2023-10-30 08:21] LABS: ALANINE AMINOTRANSFERASE 53 U/L (12-78); ALBUMIN 3.3 G/DL (3.4-5.0); ALBUMIN/GLOBULIN RATIO 1.1 (1.1-1.5); ALKALINE PHOSPHATASE 95 IU/L (46-116); ANION GAP 8 (8-16); ASPARTATE AMINO TRANSFERASE 28 U/L (10-37); BILIRUBIN,TOTAL 0.7 MG/DL (0.1-1.0); BLOOD UREA NITROGEN 17 MG/DL (7-18); BUN/CREATININE RATIO 31.5 (10.0-20.0); CALCIUM 8.5 MG/DL (8.5-10.1); CHLORIDE 105 MMOL/L (99-107); CREATININE 0.54 MG/DL (0.40-0.90); GLUCOSE 107 MG/DL (70-104); MAGNESIUM 2.2 MG/DL (1.5-2.4); PHOSPHORUS 4.2 MG/DL (2.3-4.5); POTASSIUM 4.1 MMOL/L (3.5-5.1); SODIUM 140 MMOL/L (135-145); TOTAL CARBON DIOXIDE 27.5 MMOL/L (24-32); TOTAL PROTEIN 6.3 G/DL (6.4-8.2); TRIGLYCERIDES 49 MG/DL (20-135); eCRCL 119 ML/MIN; eGFR > 90 ML/MIN
[2023-10-30 08:34] LABS: PREALBUMIN 14.3 MG/DL (19-36)
[2023-10-30] MEDS: chromic chloride inj. 10 MCG, ZINC/COPPER/MANGANESE/SELENIUM 1 ML in AA 5%/CALCIUM/LYTE... IV SCH (10:01)
[2023-10-30] MEDS ORDERED: BUPIVAcaine 0.5% inj/PF 30 ML ONE (10:17)
[2023-10-30] MEDS ORDERED: BUPIVACAINE liposomal/PF 13.3 MG/ML vial IM ONE (10:18)
[2023-10-30] MEDS ORDERED: OXYC10TA47 PO (11:03)
[2023-10-30] MEDS ORDERED: ZINC/COPPER/MANGANESE/SELENIUM 1 ML, chromic chloride inj. 10 MCG in AA 5%/CALCIUM/LYTE... IV SCH (13:00)
[2023-10-30 18:00] VITALS: BP 105/58; PULSE 57; RESP 18; TEMP 99.4; O2SAT 99
[2023-10-30 20:00] VITALS: RESP 18; O2SAT 99
[2023-10-30 22:00] VITALS: BP 102/51; PULSE 63; RESP 12; TEMP 97.4; O2SAT 97
[2023-10-31 02:00] VITALS: BP 107/47; PULSE 67; RESP 12; TEMP 96.7; O2SAT 97
[2023-10-31 06:00] VITALS: BP 124/65; PULSE 70; RESP 12; TEMP 97; O2SAT 99
[2023-10-31 08:00] VITALS: RESP 18; O2SAT 99
[2023-10-31 11:00] VITALS: BP 86/55; PULSE 66; RESP 15; TEMP 97.4; O2SAT 99
[2023-10-31 15:00] VITALS: BP 109/64; PULSE 75; RESP 12; TEMP 97.9; O2SAT 100
[2023-10-31] MEDS: LORazepam 0.5 MG tablet PO PRN (16:06)
== END 2023-10-31 17:43 | disposition home health service (06) | DRG 249 ==
LOC: ER 12:46 → ED HOLD 20:25 → PCU 3S 22:50 → UNDODISIN 10-28 11:40
PROVIDERS: ADMIT Internal Medicine Critical Care Medicine; ATTEND Internal Medicine
PROC: BW211ZZ Computerized Tomography (CT Scan) of Abdomen and Pelvis using Low Osmolar Contrast (ICD-10-PCS; principal; 2023-10-24)
DX: K52.9 Noninfective gastroenteritis and colitis, unspecified (principal); E87.6 Hypokalemia; F32.A Depression, unspecified; G89.29 Other chronic pain; F41.9 Anxiety disorder, unspecified; K86.1 Other chronic pancreatitis; Z88.8 Allergy status to other drugs, medicaments and biological substances; Z91.030 Bee allergy status; Z91.013 Allergy to seafood; Z90.49 Acquired absence of other specified parts of digestive tract; Z90.710 Acquired absence of both cervix and uterus; Z90.411 Acquired partial absence of pancreas; Z79.899 Other long term (current) drug therapy
CPT/HCPCS: 36415; 71045; 73030; 74176; 74177; 76700; 80048; 80053; 80076; 81003; 82150; 82948; 83690; 83735; 84100; 84134; 84478; 85025; 87081; 99285; C9290; G0378; J1170; J1650; J1815; J2270; J2405; J3411; J3480; J3490; J7030; J7042; J7060; Q9963; Q9967; S0020

== ENCOUNTER 2024-02-06 21:16 | Inpatient (IN) | payer MEDICAID ==
[~2024-02-06] VITALS: Ht 177.8 cm; Wt 52.6 kg
[~2024-02-06 21:16] MED LIST changes: -DULO20CA50 PO; -ERGO500041 PO; -ONDA4TAB12 PO; +OXYC10TA47 PO; -PANT-47 PO; -[UNRECOGNIZED DRUG - CODE] PO
[2024-02-06 23:07] LABS: BASOPHILS # (AUTO) 0.1 X10'3 (0-0.2); BASOPHILS % (AUTO) 0.8 % (0-1); EOSINOPHILS # (AUTO) 0.1 X10'3 (0-0.9); EOSINOPHILS % (AUTO) 0.9 % (0-6); HEMATOCRIT 36.9 % (35.0-45.0); HEMOGLOBIN 12.6 g/dl (12.0-16.0); LYMPHOCYTES # (AUTO) 2.1 X10'3 (1.1-4.8); LYMPHOCYTES % (AUTO) 30.2 % (21-51); MEAN CORPUSCULAR HEMOGLOBIN 29.3 PG (27.0-31.0); MEAN CORPUSCULAR VOLUME 85.9 FL (78-98); MEAN PLATELET VOLUME 9.3 FL (7.4-10.4); MONOCYTES # (AUTO) 0.3 X10'3 (0-0.9); MONOCYTES % (AUTO) 4.9 % (2-12); NEUTROPHILS # (AUTO) 4.3 X10'3 (1.8-7.7); NEUTROPHILS % (AUTO) 63.2 % (42-75); PLATELET COUNT 184 X10'3 (140-440); RED CELL DISTRIBUTION WIDTH 13.5 % (11.5-14.5); WHITE BLOOD COUNT 6.8 X10'3 (4.5-11.0)
[2024-02-06 23:21] LABS: ALBUMIN 3.5 G/DL (3.4-5.0); ANION GAP 10 (8-16); BLOOD UREA NITROGEN 8 MG/DL (7-18); BUN/CREATININE RATIO 12.5 (10.0-20.0); CALCIUM 8.6 MG/DL (8.5-10.1); CHLORIDE 106 MMOL/L (99-107); CREATININE 0.64 MG/DL (0.40-0.90); GLUCOSE 99 MG/DL (70-104); LIPASE 13 U/L (16-77); POTASSIUM 3.5 MMOL/L (3.5-5.1); SODIUM 141 MMOL/L (135-145); TOTAL CARBON DIOXIDE 24.7 MMOL/L (24-32); eCRCL 81 ML/MIN; eGFR > 90 ML/MIN
[2024-02-07] MEDS: HYDROmorphone inj. 0.5 MG/0.5 ML DISP.SYRIN IV ONE (00:23)
[2024-02-07] MEDS: normal saline 1000ML IV soln IVB ONE (00:24)
[2024-02-07 01:19] LABS: BILIRUBIN,URINE NEGATIVE (Neg); CLARITY,URINE CLEAR (Clear); COLOR,URINE STRAW (Yellow); GLUCOSE, URINE NEGATIVE (Neg); KETONES,URINE NEGATIVE (Neg); LEUKOCYTE ESTERASE ,URINE NEGATIVE (Neg); NITRITES, URINE NEGATIVE (Neg); OCCULT BLOOD,URINE NEGATIVE (Neg); PROTEIN,URINE NEGATIVE (Neg); UROBILINOGEN,URINE 0.2 E.U/dL (0.2-1.0)
[2024-02-07 01:25] LABS: UA COLLECTION TYPE NON-SPECIFIED
[2024-02-07] MEDS ORDERED: mag hydrox/Alum hydrox/simeth 30ml oral suspension PO PRN (03:30)
[2024-02-07] MEDS ORDERED: HYDROcodone/acetaminophen 5mg/325mg tablet PO PRN (03:30)
[2024-02-07] MEDS ORDERED: morphine 2 MG/ML inj. syringe IV PRN ×2 (03:30)
[2024-02-07] MEDS ORDERED: magnesium 4gm in 100ml NS 100 ML IV PRN ×2 (03:30→13:15)
[2024-02-07] MEDS ORDERED: acetaminophen 325mg tablet PO PRN ×2 (03:30)
[2024-02-07] MEDS ORDERED: potassium Cl 40MEQ/1/2NS 520ml 520 ML IV PRN ×2 (03:30→13:15)
[2024-02-07] MEDS ORDERED: potassium Cl 20 mEq SR tablet PO PRN ×4 (03:30→13:15)
[2024-02-07] MEDS ORDERED: HYDROcodone/acetaminophen 10/325mg tab PO PRN (03:30)
[2024-02-07] MEDS ORDERED: magnesium 2GM in 50ml NS 50 ML IV PRN ×2 (03:30→13:15)
[2024-02-07] MEDS ORDERED: magnesium Cl slow-release 64mg tablet PO PRN ×2 (03:30→13:15)
[2024-02-07] MEDS ORDERED: magnesium hydroxide 30ml (MOM) UD suspension PO PRN (03:30)
[2024-02-07 03:57] LABS: MAGNESIUM 1.9 MG/DL (1.5-2.4); POTASSIUM 3.6 MMOL/L (3.5-5.1)
[2024-02-07] MEDS: HYDROmorphone/PF 0.2 MG/ML SYRINGE IV PRN (07:43)
[2024-02-07 08:00] VITALS: BP_SYST 114; BP_SYST 154; BP_DIAS 55; BP_DIAS 63; BP_DIAS 68; PULSE 61; PULSE 63; PULSE 82
[2024-02-07] MEDS: K and/or MAG REPLACEMENT MC SCH (08:00)
[2024-02-07] MEDS ORDERED: docusate sod 100mg capsule PO SCH (08:00)
[2024-02-07] MEDS ORDERED: non-formulary drug (Oxycodone Hcl 1 TAB) PO PRN (08:15)
[2024-02-07] MEDS ORDERED: tizanidine 4mg tablet PO PRN (08:15)
[2024-02-07] MEDS ORDERED: SUMAtriptan 25 MG tablet PO PRN (08:15)
[2024-02-07 11:00] VITALS: BP 140/77; PULSE 58; RESP 20; TEMP 97.9; O2SAT 99
[2024-02-07] MEDS ORDERED: HYDROmorphone/PF 0.2 MG/ML SYRINGE IV PRN (12:05)
[2024-02-07] MEDS: normal saline 1000ml 1,000 ML IV SCH (12:25)
[2024-02-07] MEDS: HYDROmorphone inj. 0.5 MG/0.5 ML DISP.SYRIN IV PRN (12:29)
[2024-02-07] MEDS: Lipase/Protease/Amylase (Creon Dr 12,000 Units Capsule) PO SCH (13:00)
[2024-02-07] MEDS ORDERED: sodium phosphate inj. 15 MMOL in dextrose 5%-water 250 ML IV PRN (13:15)
[2024-02-07] MEDS ORDERED: Dextrose 10%-water IV solution 1,000 ML IV PRN (13:15)
[2024-02-07] MEDS ORDERED: Neutra Phos packet PO PRN (13:15)
[2024-02-07] MEDS ORDERED: sodium phosphate inj. 30 MMOL in dextrose 5%-water 250 ML IV PRN (13:15)
[2024-02-07 13:51] LABS: ALANINE AMINOTRANSFERASE 28 U/L (12-78); ALBUMIN 3.3 G/DL (3.4-5.0); ALBUMIN/GLOBULIN RATIO 1.3 (1.1-1.5); ALKALINE PHOSPHATASE 71 IU/L (46-116); ANION GAP 11 (8-16); ASPARTATE AMINO TRANSFERASE 17 U/L (10-37); BILIRUBIN,TOTAL 0.8 MG/DL (0.1-1.0); BLOOD UREA NITROGEN 7 MG/DL (7-18); BUN/CREATININE RATIO 13.2 (10.0-20.0); CALCIUM 8.4 MG/DL (8.5-10.1); CHLORIDE 109 MMOL/L (99-107); CREATININE 0.53 MG/DL (0.40-0.90); GLUCOSE 85 MG/DL (70-104); MAGNESIUM 1.8 MG/DL (1.5-2.4); PHOSPHORUS 3.2 MG/DL (2.3-4.5); POTASSIUM 3.8 MMOL/L (3.5-5.1); PREALBUMIN 12.6 MG/DL (19-36); SODIUM 141 MMOL/L (135-145); TOTAL CARBON DIOXIDE 21.3 MMOL/L (24-32); TOTAL PROTEIN 5.9 G/DL (6.4-8.2); TRIGLYCERIDES 53 MG/DL (20-135); eCRCL 98 ML/MIN; eGFR > 90 ML/MIN
[2024-02-07 15:00] VITALS: BP 98/47; PULSE 51; RESP 16; TEMP 97.7; O2SAT 98
[2024-02-07 17:00] LABS: FREE T4 (FREE THYROXINE) 1.02 NG/DL (0.73-1.40); THYROID STIMULATING HORMONE 0.83 ulU/ml (0.34-4.50)
[2024-02-07 18:00] VITALS: BP 123/64; PULSE 50; RESP 16; TEMP 97.7; O2SAT 97
[2024-02-07 20:00] VITALS: BP_SYST 110; BP_SYST 112; BP_SYST 148; BP_DIAS 62; BP_DIAS 63; BP_DIAS 65; PULSE 69; PULSE 97; PULSE 98; RESP 18; O2SAT 98
[2024-02-07] MEDS ORDERED: K and/or MAG REPLACEMENT MC SCH (20:00)
[2024-02-07] MEDS: fat emulsion 20% inj. 100 ML IV SCH (20:00)
[2024-02-07] MEDS: ZINC/COPPER/MANGANESE/SELENIUM 1 ML, chromic chloride inj. 10 MCG in AA 5%/CALCIUM/LYTE... IV SCH (20:24)
[2024-02-07] MEDS: enoxaparin 40mg/0.4ml syringe SUBCUT SCH (20:45)
[2024-02-07] MEDS: estradiol 1mg tablet PO SCH (20:45)
[2024-02-07] MEDS: ondansetron/PF 4mg/2ml inj IV PRN (21:44)
[2024-02-07 22:00] VITALS: BP 112/62; PULSE 55; RESP 16; TEMP 98.5; O2SAT 98
[2024-02-07] MEDS: zolpidem 5mg tablet PO PRN (22:50)
[2024-02-08 02:00] VITALS: BP 102/49; PULSE 57; RESP 18; TEMP 97.2; O2SAT 98
[2024-02-08 07:17] LABS: BASOPHILS % (AUTO) 0.4 % (0-1); EOSINOPHILS % (AUTO) 0.5 % (0-6); HEMATOCRIT 35.1 % (35.0-45.0); HEMOGLOBIN 11.8 g/dl (12.0-16.0); LYMPHOCYTES # (AUTO) 1.6 X10'3 (1.1-4.8); LYMPHOCYTES % (AUTO) 25.3 % (21-51); MEAN CORPUSCULAR HEMOGLOBIN 29.4 PG (27.0-31.0); MEAN CORPUSCULAR HGB CONC 33.5 g/dL (33.0-36.5); MEAN CORPUSCULAR VOLUME 87.6 FL (78-98); MEAN PLATELET VOLUME 9.7 FL (7.4-10.4); MONOCYTES # (AUTO) 0.3 X10'3 (0-0.9); MONOCYTES % (AUTO) 5.4 % (2-12); NEUTROPHILS # (AUTO) 4.2 X10'3 (1.8-7.7); NEUTROPHILS % (AUTO) 68.4 % (42-75); PLATELET COUNT 173 X10'3 (140-440); RED CELL DISTRIBUTION WIDTH 13.6 % (11.5-14.5); WHITE BLOOD COUNT 6.2 X10'3 (4.5-11.0)
[2024-02-08 07:29] VITALS: BP 89/36; PULSE 69; RESP 14; TEMP 97.9; O2SAT 97
[2024-02-08 08:00] VITALS: BP_SYST 105; BP_SYST 110; BP_SYST 118; BP_DIAS 60; BP_DIAS 61; BP_DIAS 67; RESP 14; O2SAT 97
[2024-02-08 10:37] LABS: ALANINE AMINOTRANSFERASE 25 U/L (12-78); ALBUMIN/GLOBULIN RATIO 1.2 (1.1-1.5); ALKALINE PHOSPHATASE 72 IU/L (46-116); ANION GAP 14 (8-16); ASPARTATE AMINO TRANSFERASE 14 U/L (10-37); BILIRUBIN,TOTAL 0.9 MG/DL (0.1-1.0); BLOOD UREA NITROGEN 7 MG/DL (7-18); BUN/CREATININE RATIO 11.5 (10.0-20.0); CALCIUM 8.4 MG/DL (8.5-10.1); CHLORIDE 104 MMOL/L (99-107); CREATININE 0.61 MG/DL (0.40-0.90); GLUCOSE 50 MG/DL (70-104); MAGNESIUM 1.7 MG/DL (1.5-2.4); PHOSPHORUS 3.7 MG/DL (2.3-4.5); POTASSIUM 3.8 MMOL/L (3.5-5.1); SODIUM 137 MMOL/L (135-145); TOTAL CARBON DIOXIDE 18.8 MMOL/L (24-32); TOTAL PROTEIN 5.5 G/DL (6.4-8.2); eCRCL 94 ML/MIN; eGFR > 90 ML/MIN
[2024-02-08] MEDS ORDERED: dextrose 5%-normal saline 1,000 ML IV SCH (10:55)
[2024-02-08] MEDS: LORazepam 2 mg/ml vial IV ONE (14:24)
[2024-02-08 15:00] VITALS: BP 113/63; PULSE 61; RESP 16; TEMP 98.1; O2SAT 98
[2024-02-08 18:45] VITALS: RESP 16
[2024-02-08] MEDS: ZINC/COPPER/MANGANESE/SELENIUM 1 ML, chromic chloride inj. 10 MCG in AA 5%/CALCIUM/LYTE... IV SCH (19:29)
[2024-02-10] MEDS ORDERED: MVI, adult No.4 with vit. K 10 ML in dextrose 5% water 500ml 500 ML IV SCH (08:00)
== END 2024-02-08 20:25 | disposition left against medical advice (07) | DRG 251 ==
LOC: ER 21:16 → UNDOADMIN 02-07 03:33 → ED HOLD 02-07 03:33 → PCU 3S 02-07 10:38 → ED HOLD 02-07 17:23 → UNDODISIN 02-08 20:25
PROVIDERS: ADMIT Internal Medicine Pulmonary Disease; ATTEND Internal Medicine
DX: R10.12 Left upper quadrant pain (principal); E46 Unspecified protein-calorie malnutrition; G20.A1 Parkinson's disease without dyskinesia, without mention of fluctuations; R62.7 Adult failure to thrive; K86.1 Other chronic pancreatitis; R00.1 Bradycardia, unspecified; F41.9 Anxiety disorder, unspecified; G89.29 Other chronic pain; Z53.29 Procedure and treatment not carried out because of patient's decision for other reasons; Z83.3 Family history of diabetes mellitus; Z87.891 Personal history of nicotine dependence; Z88.6 Allergy status to analgesic agent; Z90.49 Acquired absence of other specified parts of digestive tract; Z90.710 Acquired absence of both cervix and uterus; Z88.8 Allergy status to other drugs, medicaments and biological substances; Z91.030 Bee allergy status; Z91.013 Allergy to seafood; Z90.411 Acquired partial absence of pancreas; Z68.1 Body mass index [BMI] 19.9 or less, adult
CPT/HCPCS: 36415; 70551; 71045; 80048; 80053; 81003; 82948; 83690; 83735; 84100; 84132; 84134; 84439; 84443; 84478; 84484; 85025; 87081; 93005; 93308; G0378; J1170; J1650; J2060; J2405; J3490; J7030

== ENCOUNTER 2024-12-24 17:14 | Outpatient (CLI) | payer MEDICAID ==
[~2024-12-24 17:14] MED LIST changes: -OXYC10TA47 PO; -POLY119P2 PO
[2024-12-24 18:12] LABS: EOSINOPHILS # (AUTO) 0.1 X10'3 (0-0.9); HEMOGLOBIN 13.1 g/dl (12.0-16.0); LYMPHOCYTES # (AUTO) 1.7 X10'3 (1.1-4.8); MONOCYTES # (AUTO) 0.3 X10'3 (0-0.9); MONOCYTES % (AUTO) 4.8 % (2-12); NEUTROPHILS # (AUTO) 3.4 X10'3 (1.8-7.7); RED CELL DISTRIBUTION WIDTH 18.1 % (11.5-14.5); WHITE BLOOD COUNT 5.4 X10'3 (4.5-11.0)
[2024-12-24 18:14] LABS: BASOPHILS % (AUTO) 0.7 % (0-1); EOSINOPHILS % (AUTO) 1.1 % (0-6); HEMATOCRIT 38.7 % (35.0-45.0); LYMPHOCYTES % (AUTO) 30.6 % (21-51); MEAN CORPUSCULAR HEMOGLOBIN 28.1 PG (27.0-31.0); MEAN CORPUSCULAR HGB CONC 33.8 g/dL (33.0-36.5); MEAN CORPUSCULAR VOLUME 83.1 FL (78-98); MEAN PLATELET VOLUME 11.5 FL (7.4-10.4); NEUTROPHILS % (AUTO) 62.8 % (42-75); PLATELET COUNT 175 X10'3 (140-440); RED BLOOD COUNT 4.66 X10'6 (4.20-5.60)
[2024-12-24 18:20] LABS: ALANINE AMINOTRANSFERASE 44 U/L (12-78); ALBUMIN 3.8 G/DL (3.4-5.0); ALBUMIN/GLOBULIN RATIO 1.4 (1.1-1.5); ALKALINE PHOSPHATASE 97 IU/L (46-116); ANION GAP 8 (8-16); ASPARTATE AMINO TRANSFERASE 28 U/L (10-37); BILIRUBIN,TOTAL 0.5 MG/DL (0.1-1.0); BLOOD UREA NITROGEN 23 MG/DL (7-18); CALCIUM 8.9 MG/DL (8.5-10.1); CHLORIDE 105 MMOL/L (99-107); CREATININE 0.59 MG/DL (0.40-0.90); GLUCOSE 118 MG/DL (70-104); PHOSPHORUS 4.2 MG/DL (2.3-4.5); POTASSIUM 4.3 MMOL/L (3.5-5.1); SODIUM 141 MMOL/L (135-145); TOTAL CARBON DIOXIDE 28.3 MMOL/L (24-32); TOTAL PROTEIN 6.5 G/DL (6.4-8.2); TRIGLYCERIDES 52 MG/DL (20-135); eGFR > 90 ML/MIN
[2024-12-24 18:59] LABS: ANISOCYTOSIS 2+; GIANT PLATELET FEW
[2024-12-24 19:01] LABS: LARGE PLATELETS FEW; PLATELET ESTIMATE NORMAL
== END 2024-12-24 23:59 | disposition home or self-care (01) ==
LOC: LAB SPEC 17:14
PROVIDERS: ATTEND Physician Assistant
DX: K50.90 Crohn's disease, unspecified, without complications (principal)
CPT/HCPCS: 36415; 80053; 83735; 84100; 84478; 85008; 85025